=== PATIENT | male | born 1945 | race American Indian/Alaskan Native ===

== ENCOUNTER 2018-05-23 21:45 | Inpatient (IN) | payer MEDICARE ==
[2018-05-23] MEDS ORDERED: NACL 0.9% 1000 ML IV ONE (21:59)
--- NOTE | 2018-05-23 22:10 | Emergency Department Report ---
ED General Adult HPI - General Chief complaint: Altered Mental Status Stated complaint: ALTERED MENTAL STATUS/HYPERTENSION Time Seen by Provider: 05/23/18 21:57 Source: EMS Mode of arrival: Stretcher Limitations: Altered Mental Status - History of Present Illness Initial comments: Patient is 72 years old male, snf patient, history of dementia, retention, diabetes, CVA, chronic indwelling catheter. Patient brought to the emergency room via EMS for evaluation of degrees blood pressure and hypothermia. EMS stated that initial blood pressure was 64/42. Patient urinary bag is empty. Patient is not communicating but according to the EMS nursing staff said this is his baseline. Most of the history is from EMS and from outpatient medical record. Sepsis protocol initiated. Severity scale (0 -10): 0 - Related Data Home Medications Medication Instructions Recorded Confirmed Last Taken Acetaminophen [Non-Aspirin Pain 500 mg PO Q4H PRN 01/26/17 04/03/18 01/26/17 Relief] Previous Rx's Medication Instructions Recorded Last Taken Type carBAMazepine [TEGretol] 400 mg PO Q8HR tablet 09/24/14 01/25/17 Rx Carvedilol [Coreg] 6.25 mg PO BID tablet 01/29/[address] [Depakote Dr] 250 mg PO TID tablet 01/29/17 Unknown Rx Multivitamin Tab [Multiple Vitamin 1 each PO DAILY tablet 01/29/17 Unknown Rx TAB (Theragran)] Aspirin [Aspirin TAB] 325 mg PO QDAY #30 tablet 04/13/18 Unknown Rx AtorvaSTATin [Lipitor] 40 mg PO QHS #30 tablet 04/13/18 Unknown Rx Allergies Allergy/AdvReac Type Severity Reaction Status Date / Time No Known Allergies Allergy Verified 04/03/18 10:23 ED Review of Systems ROS: Stated complaint: ALTERED MENTAL STATUS/HYPERTENSION Other details as noted in HPI Comment: Unobtainable due to pts medical conditions ED Past Medical Hx - Past Medical History Hx Hypertension: Yes (04/11/2006) Hx Seizures: Yes Hx Dementia: Yes Additional medical history: HX of weakness in arms legs and back - Social History Smoking Status: Unknown if ever smoked Substance Use Type: Other - Medications Home Medications: Home Medications Medication Instructions Recorded Confirmed Last Taken Type carBAMazepine [TEGretol] 400 mg PO Q8HR tablet 09/24/14 04/03/18 01/25/17 Rx Acetaminophen [Non-Aspirin Pain 500 mg PO Q4H PRN 01/26/17 04/03/18 01/26/17 History Relief] Carvedilol [Coreg] 6.25 mg PO BID tablet 01/29/17 04/03/[address] [Depakote Dr] 250 mg PO TID tablet 01/29/17 04/03/18 Unknown Rx Multivitamin Tab [Multiple Vitamin 1 each PO DAILY tablet 01/29/17 04/03/18 Unknown Rx TAB (Theragran)] Aspirin [Aspirin TAB] 325 mg PO QDAY #30 tablet 04/13/18 Unknown Rx AtorvaSTATin [Lipitor] 40 mg PO QHS #30 tablet 04/13/18 Unknown Rx ED Physical Exam - General Limitations: Altered Mental Status General appearance: alert, in no apparent distress - Head Head exam: Present: atraumatic, normocephalic, normal inspection - Eye Eye exam: Present: normal appearance, PERRL - ENT ENT exam: Present: normal exam, mucous membranes dry - Neck Neck exam: Present: normal inspection, full ROM. Absent: tenderness, meningismus, lymphadenopathy, thyromegaly - Respiratory Respiratory exam: Present: normal lung sounds bilaterally. Absent: respiratory distress, wheezes, rales, rhonchi, chest wall tenderness, accessory muscle use, decreased breath sounds, prolonged expiratory - Cardiovascular Cardiovascular Exam: Present: regular rate, normal rhythm, normal heart sounds - GI/Abdominal GI/Abdominal exam: Present: soft, normal bowel sounds. Absent: distended, tenderness, guarding, rebound, rigid, organomegaly, mass, bruit, pulsatile mass, hernia - Extremities Exam Extremities exam: Present: normal inspection, full ROM, normal capillary refill - Neurological Exam Neurological exam: Present: alert, altered, CN II-XII intact - Skin Skin exam: Present: warm, intact ED Course Vital Signs 05/23/18 05/23/18 05/23/18 21:48 22:04 22:16 Temperature 97.4 F L Pulse Rate 84 81 79 Respiratory 16 17 20 Rate Blood Pressure 81/49 Blood Pressure 104/55 [Left] O2 Sat by Pulse 98 Oximetry 05/23/18 05/23/18 05/23/18 22:40 22:46 23:00 Temperature Pulse Rate 82 84 89 Respiratory 18 22 16 Rate Blood Pressure 81/49 81/49 111/64 Blood Pressure [Left] O2 Sat by Pulse 98 Oximetry - Reevaluation(s) Reevaluation #1: 05/23/18 23:57 Patient evaluated by me multiple times. Blood pressure improved significantly after fluid resuscitation. ED Medical Decision Making - Lab Data Result diagrams: 05/23/18 22:03 05/23/18 22:03 - Radiology Data Radiology results: report reviewed Referring Physician: JL ARROYO Patient Name: POPPY FRANCIS Date of : 1945 Sex: Male Report Date: 2018-05-23 Report Status: Finalized Findings [facility] [address] [place] [address] Cat Scan Report Signed Patient: POPPY FRANCIS MR#: [id number] : 1945 Acct:[id number] Age/Sex: 72 / M ADM Date: 05/23/18 Loc: ED Attending Dr: Ordering Physician: JL ARROYO Date of Service: 05/23/18 Procedure(s): CT head/brain wo con Accession Number(s): [id number] cc: JL ARROYO FINAL REPORT EXAM: CT HEAD/BRAIN WO CON HISTORY: AMS TECHNIQUE: 2.5 millimeter axial images from the skullbase to the vertex. Comparison: Head CT dated April 06, 2018 FINDINGS: White matter changes most likely represent chronic post ischemic demyelinat ion/small vessel disease and is not significantly changed in the interval. There is no evidence of an acute intracranial process, intracranial hemorrhage or mass effect. Ventricular size is concordant with the degree of atrophy. There is prominence of the extra-axial spaces in the posterior fossa similar in appearance to the previous study. There is atherosclerotic vascular calcification of the internal carotid arteries bilaterally and left vertebral artery at the skullbase. The visualized portions of the orbits, paranasal and mastoid sinuses are unremarkable. The bony structures are unremarkable. IMPRESSION: 1. A no evidence of an acute intracranial process, intracranial hemorrhage or mass effect. No significant change since previous study dated April 06, 2018. If there is a clinical suspicion of an acute intracranial process, MRI brain may be helpful. Transcribed By: ED Dictated By: VANESA ZHOU MD Electronically Authenticated By: VANESA ZHOU MD Signed Date/Time: 05/23/182323 DD/ 22 TD/TT: 05/23/182322 Referring Physician: JL ARROYO Patient Name: POPPY FRANCIS Date of : 1945 Sex: Male Report Date: 2018-05-23 Report Status: Finalized Findings [facility] [address] [place] [address] XRay Report Signed Patient: POPPY FRANCIS MR#: [id number] : 1945 Acct:[id number] Age/Sex: 72 / M ADM Date: 05/23/18 Loc: ED Attending Dr: Ordering Physician: JL ARROYO Date of Service: 05/23/18 Procedure(s): XR chest 1V ap Accession Number(s): [id number] cc: JL ARROYO Fluoro Time In Minutes: FINAL REPORT PROCEDURE: XR CHEST 1V AP TECHNIQUE: Chest radiograph anteroposterior view. CPT 53072 HISTORY: sepsis COMPARISON: No prior studies are available for comparison. FINDINGS: Heart: Normal. Mediastinum/Vessels: Normal. Lungs/Pleural space: Normal. Bony thorax: No acute osseous abnormality. Life support devices: None. IMPRESSION: No acute cardiopulmonary abnormality. Transcribed By: [facility] [place] Dictated By: SHANNAN GILLIS Electronically Authenticated By: SHANNAN GILLIS Signed Date/Time: 05/23/182326 DD/ 26 TD/TT: 05/23/182326 - Medical Decision Making Patient is 72 years old male, snf patient, history of dementia, retention, diabetes, CVA, chronic indwelling catheter. Patient brought to the emergency room via EMS for evaluation of degrees blood pressure and hypothermia. EMS stated that initial blood pressure was 64/42. Patient urinary bag is empty. Patient is not communicating but according to the EMS nursing staff said this is his baseline. Most of the history is from EMS and from outpatient medical record. Sepsis protocol initiated. Patient evaluated by me multiple times. Patient blood pressure significantly improved after the first liter of fluids. Patient white count is 16. Patient treated for sepsis, possible source is urine. CT brain is negative for acute finding. Chest x-ray is negative also. I discussed the patient is Dr. Dominguez, he agreed to admit the patient to medical service. Critical Care Time: Yes Critical care time in (mins) excluding proc time.: 30 Critical care attestation.: If time is entered above; I have spent that time in minutes in the direct care of this critically ill patient, excluding procedure time. ED Disposition Clinical Impression: Sepsis, Hypotension, Acute renal failure, Altered mental status Disposition: DC-[id number] OP ADMIT IP TO THIS HOSP Is pt being admited?: Yes Condition: Stable
[2018-05-23] MEDS ORDERED: ZOSYN/NS 3.375GM/50ML 3.375 GM/50 ML BAG IV ONE (22:21)
[2018-05-23 22:39] LABS: Basophils % (Auto) 0.1 % (0.0-1.8); Hematocrit 38.4 % (35.5-45.6); Hemoglobin 13.2 gm/dl (11.8-15.2); Lymphocytes # (Auto) 0.6 K/mm3 (1.2-5.4); Lymphocytes % (Auto) 3.8 % (13.4-35.0); Mean Corpuscular HGB Conc 34 % (32-34); Mean Corpuscular Volume 92 fl (84-94); Monocytes # (Auto) 1.3 K/mm3 (0.0-0.8); Monocytes % (Auto) 8.1 % (0.0-7.3); Platelet Count 181 K/mm3 (140-440); Red Blood Count 4.18 M/mm3 (3.65-5.03); Red Cell Distribution Width 14.8 % (13.2-15.2)
[2018-05-23 22:59] LABS: Albumin 3.1 g/dL (3.9-5); Calcium 8.1 mg/dL (8.4-10.2)
--- NOTE | 2018-05-23 23:24 | Cat Scan Report ---
FINAL REPORT EXAM: CT HEAD/BRAIN WO CON HISTORY: AMS TECHNIQUE: 2.5 millimeter axial images from the skullbase to the vertex. Comparison: Head CT dated April 06, 2018 FINDINGS: White matter changes most likely represent chronic post ischemic demyelination/small vessel disease a nd is not significantly changed in the interval. There is no evidence of an acute intracranial process, intracranial hemorrhage or mass effect. Ventricular size is concordant with the degree of atrophy. There is prominence of the extra-axial spaces in the posterior fossa similar in appearance to the pre vious study. There is atherosclerotic vascular calcification of the internal carotid arteries bilaterally and left vertebral artery at the skullbase. The visualized portions of the orbits, paranasal and mastoid sinuses are unremarkable. The bony structures are unremarkable. IMPRESSION: 1. A no evidence of an acute intracranial process, intracranial hemorrhage or mass effect. No significant change since previous study dated April 06, 2018. If there is a clinical suspicion of an acute intracranial process, MRI brain may be helpful.
--- NOTE | 2018-05-23 23:27 | XRay Report ---
FINAL REPORT PROCEDURE: XR CHEST 1V AP TECHNIQUE: Chest radiograph anteroposterior view. CPT 41598 HISTORY: sepsis COMPARISON: No prior studies are available for comparison. FINDINGS: Heart: Normal. Mediastinum/Vessels: Normal. Lungs/Pleural space: Normal. Bony thorax: No acute osseous abnormality. Life support devices: None. IMPRESSION: No acute cardiopulmonary abnormality.
[2018-05-24] MEDS ORDERED: NACL 0.9% 1000 ML 1,000 ML ONE ×2 (00:34→02:00)
[2018-05-24] MEDS ORDERED: NACL 0.9% 1000 ML 1,000 ML IV ONE (00:47)
[2018-05-24] MEDS ORDERED: ZOFRAN IV PRN (00:48)
[2018-05-24] MEDS: NACL 0.9% 1000 ML 1,000 ML IV SCH ×2 (01:58→17:32)
[2018-05-24] MEDS ORDERED: HEPARIN ONE (01:59)
[2018-05-24] MEDS: ZOSYN/NS 2.25 GM/50ML 2.25 GM/50 ML BAG IV SCH ×3 (05:27→18:13)
[2018-05-24] MEDS ORDERED: ZOSYN/NS 3.375GM/50ML 3.375 GM/50 ML BAG IV SCH (06:00)
--- NOTE | 2018-05-24 06:44 | History and Physical Report ---
CHIEF COMPLAINT: Change in mental status. Other complaint includes low blood pressure. HISTORY OF PRESENT ILLNESS: The patient is a 72-year-old male who is brought from alf because of change in mental status. Also, the patient was noted to have low blood pressure and low temperature at the alf with systolic blood pressure in the 60s and they sent him over. There was no history of nausea or vomiting. No history of chest pain or shortness of breath. The patient was sent over for evaluation. PAST MEDICAL HISTORY: Pertinent for hypertension, seizure disorder, dementia, weakness in the leg. PAST SURGICAL HISTORY: Unremarkable. FAMILY HISTORY: Noncontributory. SOCIAL HISTORY: The patient stays at a alf, does not smoke, does not drink alcohol and does not use illicit drug. MEDICATIONS: The patient is on Tegretol or carbamazepine 400 mg by mouth every 8 hours, Tylenol 500 mg by mouth every 4 hours, Coreg 6.25 mg by mouth twice daily, Depakote 250 mg by mouth 3 times daily, multivitamin 1 by mouth daily, aspirin 325 mg by mouth daily, Lipitor 40 mg by mouth at bedtime. ALLERGIES: There are no known drug allergies. REVIEW OF SYSTEMS: CONSTITUTIONAL: There is no fever, no chills, no diaphoresis. HEENT: There is no headache or sore throat. CARDIOVASCULAR: There is no chest pain or orthopnea. RESPIRATORY: There is no shortness of breath or cough. GASTROINTESTINAL SYSTEM: There is no nausea, no vomiting, no abdominal pain, diarrhea or constipation. NEUROLOGICAL SYSTEM: There is a change in mental status, but no dizziness or numbness. MUSCULOSKELETAL: There is no joint pain or swelling. DERMATOLOGICAL SYSTEM: There is no skin rash or itching. GENITOURINARY: There is no dysuria, hematuria or flank pain. Rest of system review is normal. PHYSICAL EXAMINATION: GENERAL: At the time of exam, the patient was found to go to be alert, disoriented x 3 and not in acute distress. VITAL SIGNS: Vital signs at the initial time of presentation showed temperature of 97.4 degrees Fahrenheit, pulse of 84, respiration 16, initial blood pressure of 104/65, but blood pressure went down to 81/49, and O2 sat of 98% on room air. HEENT: Show pupils to be equal, round, reactive to light and accommodation. Extraocular muscles are intact. NECK: Supple with no JVD or carotid bruit. CARDIOVASCULAR: Showed normal first and second heart sounds with no gallops or murmur. RESPIRATORY SYSTEM: Show good air entry on both sides of the lungs with no abnormal breath sounds. GASTROINTESTINAL SYSTEM: Show abdomen to be full, soft, nontender with no organomegaly or rigidity. NEUROLOGICAL: Shows the patient to be disoriented x 3 with no focal deficit. MUSCULOSKELETAL SYSTEM: Show no joint swelling or tenderness. DERMATOLOGICAL SYSTEM: Show no skin rash. GENITOURINARY SYSTEM: Show no costovertebral angle tenderness. PERTINENT LABORATORY AND IMAGING STUDIES: The patient had chest x-ray done that shows no acute cardiopulmonary lesion. Also, the patient has a CT of the head without contrast done and this shows no evidence of acute intracranial process. The patient's lab result shows CBC with elevated white count of 16,300, normal hemoglobin, normal hematocrit with CBC differential showing elevated segmented neutrophil of 88%. The patient's chemistry showed low sodium level of 131, low chloride level of 95.3, low CO2 of 18 with elevated BUN of 23 with elevated creatinine of 2.0. Rest of chemistry show elevated AST of 95 with normal ALT, low albumin of 3.1. DIAGNOSES: 1. Sepsis. 2. Acute renal failure. 2. Altered mental status. PLAN OF CARE: 1. While the patient will be admitted to telemetry. 2. The patient will be on IV Zosyn 3.375 grams q. 8 hours and IV Levaquin 750 mg daily. 3. The patient will be on p.r.n. medications like Tylenol 650 mg by mouth every 4 hours for fever and headache and IV Zofran 4 mg every 8 hours for nausea and vomiting. 4. The patient will have basic metabolic panel checked in the morning. 5. The patient will have Nephrology consultation with Dr. Connor in the morning for acute renal failure. 6. The patient will be on IV normal saline at 125 mL an hour. 7. The patient will be on his home medication as shown in the medication reconciliation section. 8. The patient's diet will be 2 g sodium diet. JOB# [id number] OCN/NTS
[2018-05-24 06:55] LABS: Calcium 7.5 mg/dL (8.4-10.2)
[2018-05-24] MEDS: THERAGRAN Tab PO SCH (09:47)
[2018-05-24] MEDS: ASPIRIN PO SCH (09:48)
[2018-05-24] MEDS: TYLENOL PO PRN (09:49)
[2018-05-24] MEDS ORDERED: THERAGRAN Tab PO SCH (10:00)
[2018-05-24] MEDS ORDERED: LEVAQUIN 750MG/150ML 750 MG/150 ML BAG IV SCH (10:00)
[2018-05-24] MEDS: COREG PO SCH ×2 (11:09→22:50)
--- NOTE | 2018-05-24 11:25 | Consultation ---
History of Present Illness - Reason for Consult Consult date: 05/24/18 acute renal failure - History of Present Illness The patient is a 72 YO male with history significant for DM, HTN, [place] resident, Dementia, CVA and Chronic indwelling catheter who was brought to the emergency room via EMS for evaluation of hypotension and hypothermia. Patient was not able to provide any history and no family member at the bedside. Per EMS report his initial blood pressure was 64/42. Labs were significant for creatinine 2, bicar 18 and Na 131. Nephrology was consulted for further management. Past History Past Medical History: diabetes, hyperlipidemia, other (dementia) Medications and Allergies Allergies Allergy/AdvReac Type Severity Reaction Status Date / Time No Known Allergies Allergy Verified 04/03/18 10:23 Home Medications Medication Instructions Recorded Confirmed Last Taken Type carBAMazepine [TEGretol] 400 mg PO Q8HR tablet 09/24/14 05/24/18 01/25/17 Rx Acetaminophen [Non-Aspirin Pain 500 mg PO Q4H PRN 01/26/17 05/24/18 01/26/17 History Relief] Carvedilol [Coreg] 6.25 mg PO BID tablet 01/29/17 05/24/[address] [Sergei Santizo] 250 mg PO TID tablet 01/29/17 05/24/18 Unknown Rx Multivitamin Tab [Multiple Vitamin 1 each PO DAILY tablet 01/29/17 05/24/18 Unknown Rx TAB (Theragran)] Aspirin [Aspirin TAB] 325 mg PO QDAY #30 tablet 04/13/18 05/24/18 Unknown Rx AtorvaSTATin [Lipitor] 40 mg PO QHS #30 tablet 04/13/18 05/24/18 Unknown Rx Active Meds: Active Medications Acetaminophen (Tylenol) 650 mg PO Q4H PRN PRN Reason: Fever >101 Last Admin: 05/24/18 09:49 Dose: 650 mg Documented by: Aspirin (Aspirin) 325 mg PO QDAY GREGORIO Last Admin: 05/24/18 09:48 Dose: 325 mg Documented by: Atorvastatin Calcium (Lipitor) 40 mg PO QHS GREGORIO Carbamazepine (Tegretol) 400 mg PO Q8HR GREGORIO Last Admin: 05/24/18 05:31 Dose: 400 mg Documented by: Carvedilol (Coreg) 6.25 mg PO BID GREGORIO Divalproex Sodium (Sergei Santizo) 250 mg PO TID [facility] Last Admin: 05/24/18 09:45 Dose: 250 mg Documented by: Heparin Sodium (Porcine) (Heparin) 5,000 unit SUB-Q Q12HR [facility] Sodium Chloride (Nacl 0.9% 1000 Ml) 1,000 mls @ 125 mls/hr IV DIRECT [facility] Last Admin: 05/24/18 01:58 Dose: 125 mls/hr Documented by: Piperacillin Sod/Tazobactam Sod (Zosyn/Ns 2.25 Gm/50ml) 2.25 gm in 50 mls @ 100 mls/hr IV Q6HR [facility] Last Admin: 05/24/18 05:27 Dose: 100 mls/hr Documented by: Levofloxacin/Dextrose (Levaquin 750mg/150ml) 750 mg in 150 mls @ 100 mls/hr IV Q48HR [facility]; Protocol Multivitamins (Theragran Tab) 1 each PO 0800 [facility] Last Admin: 05/24/18 09:47 Dose: 1 each Documented by: Ondansetron HCl (Zofran) 4 mg IV Q8H PRN PRN Reason: Nausea And Vomiting Review of Systems ROS unobtainable: due to mental status Exam - Vital Signs Vital signs: Vital Signs Temp Pulse Resp BP Pulse Ox 97.4 F L 84 16 104/55 98 05/23/18 21:48 05/23/18 21:48 05/23/18 21:48 05/23/18 21:48 05/23/18 21:48 - General Appearance General appearance: well-developed, appears stated age, other (not in distress) EENT: ATNC, PERRL, mucous membranes dry Neck: Present: trachea midline Respiratory: Clear to Ascultation Heart: regular, S1S2, no murmurs Gastrointestinal: Present: normoactive bowel sounds, other (Summers catheter n oted). Absent: tenderness, distended Integumentary: no rash, warm and dry Neurologic: other (not following any command, able to tell his name) Musculoskeletal: Present: other (no edema) Results - Lab Results 05/24/18 10:52 05/24/18 06:14 Most recent lab results Calcium 7.5 mg/dL (8.4-10.2) L 05/24/18 06:14 - Image Kidney/bladder ultrasound: other Assessment and Plan 1. Acute kidney injury: Vasomotor ZAY in the setting of hypotension. Continue IV fluids. CT abdomen was negative for hydronephrosis. Urine studies are pending. Monitor renal function. Avoid nephrotoxic agents. Meds dosage based on GFR. 2. FEN: Volume depletion, continue IV fluids. Monitor lytes. 3. Sepsis / hypotension: Followed by ID. 4. Hematuria. 5. Acute encephalopathy.
[2018-05-24 11:34] LABS: Hematocrit 31.7 % (35.5-45.6); Hemoglobin 10.7 gm/dl (11.8-15.2); Mean Corpuscular HGB Conc 34 % (32-34); Mean Corpuscular Volume 92 fl (84-94); Platelet Count 152 K/mm3 (140-440); Red Blood Count 3.46 M/mm3 (3.65-5.03); Red Cell Distribution Width 14.6 % (13.2-15.2)
--- NOTE | 2018-05-24 11:43 | Event Note ---
Date: 05/24/18 Patient is 72 yo sent in from SNF for altered mental status ,hypothermia, low BP. He was evaluated in ED, diagnosed with sepsis, ZAY. I have seen and examined him. Nurse reports gross hematuria which I witnessed myself. Consult ID Physician, consult Urology, get CT Abd
[2018-05-24] MEDS: HEPARIN SUB-Q SCH ×2 (12:09→22:55)
--- NOTE | 2018-05-24 13:49 | Cat Scan Report ---
FINAL REPORT EXAM: CT ABDOMEN PELVIS WO CON HISTORY: Gross hematuria COMPARISON: CT of the abdomen and pelvis performed on 01/25/2017 TECHNIQUE: Multiple contiguous axial images were obtained from the lung bases to the pubic symphysis without administration of IV contrast. Reformatted sagittal and coronal images were available for re view. FINDINGS: Lung bases: Trace bilateral pleural effusions. Associated atelectasis at the bilateral lung bases. Visualized heart and mediastinum: Normal heart size. Scattered coronary artery calcifications. Liver: Normal noncontrast appearance. Spleen: Normal noncontrast appearance. Pancreas: Normal noncontrast appearance. Gallbladder and Biliary Tree: No calcified gallstones. No biliary ductal dilatation. Adrenal glands: Normal. Kidneys: Normal noncontrast appearance. No hydronephrosis. No renal or ureteral calculi. Bladder: Normal. Pelvic organs: Summers catheter tip is within the prostatic urethra. The balloon is just distal to the prostatic urethra. Mildly enlarged prostate gland, similar to the previous study with mass effect at the bladder base. Bowel: No focal wall thickening. No evidence of obstruction. Large amount of stool within the colon. More solid appearing stool distends the rectum. Peritoneum: No significant mesenteric adenopathy. No free air or free fluid. Vasculature: Abdominal aorta is normal in caliber without evidence of aneurysm. Scattered atheroscler otic calcifications. Normal noncontrast appearance of the portal venous system and the inferior vena cava. Bones and soft tissues: Chronic appearing comminuted fracture of the right femoral neck and intertroc hanteric region. Unchanged chronic appearing compression deformities of T11, L1, L2, L3, and L4. Soft tissues are normal. IMPRESSION: Trace bilateral pleural effusions with associated atelectasis at the bilateral lung bases. The kidneys demonstrated normal noncontrast appearance. No hydronephrosis. Mildly enlarged prostate gland with mass effect at the bladder base, similar in appearance to the pre vious study. The Summers catheter is with tip in the prostatic urethra with the balloon just distal to the prostatic urethra. Chronic appearing fracture of the right femoral neck and intertrochanteric region. Chronic appearing compression deformities of T11, L1, L2, L3, and L4.
--- NOTE | 2018-05-24 14:39 | Consultation ---
History of Present Illness - Reason for Consult Consult date: 05/24/18 Sepsis, UTI Requesting physician: KERRY MELENDEZ - History of Present Illness The patient is a 72-year-old male with dementia, urinary retention, indwelling Summers catheter, diabetes, CVA who is a jail resident was brought to the emergency room yesterday due to hypotension and associated hypothermia. Apparently, he initially had some hematuria and later no urine output. In the ER, the patient was noted to be septic with leukocytosis, lactic acidosis and hypotension. He was given a dose of Zosyn and vancomycin and admitted to the hospital. Infectious diseases has been consulted to help manage sepsis. The patient currently is lying in bed, more awake, talking but appears confused. Does not seem to be any distress. Has indwelling Summers catheter with no urine output. Review of Systems: Not be obtained due to dementia Medications and Allergies Allergies Allergy/AdvReac Type Severity Reaction Status Date / Time No Known Allergies Allergy Verified 04/03/18 10:23 Home Medications Medication Instructions Recorded Confirmed Last Taken Type carBAMazepine [TEGretol] 400 mg PO Q8HR tablet 09/24/14 05/24/18 01/25/17 Rx Acetaminophen [Non-Aspirin Pain 500 mg PO Q4H PRN 01/26/17 05/24/18 01/26/17 History Relief] Carvedilol [Coreg] 6.25 mg PO BID tablet 01/29/17 05/24/18 Unknown Rx Divalproex [Sergei Santizo] 250 mg PO TID tablet 01/29/17 05/24/18 Unknown Rx Multivitamin Tab [Multiple Vitamin 1 each PO DAILY tablet 01/29/17 05/24/18 Unknown Rx TAB (Theragran)] Aspirin [Aspirin TAB] 325 mg PO QDAY #30 tablet 04/13/18 05/24/18 Unknown Rx AtorvaSTATin [Lipitor] 40 mg PO QHS #30 tablet 04/13/18 05/24/18 Unknown Rx Active Meds: Active Medications Acetaminophen (Tylenol) 650 mg PO Q4H PRN PRN Reason: Fever >101 Last Admin: 05/24/18 09:49 Dose: 650 mg Documented by: Aspirin (Aspirin) 325 mg PO QDAY GREGORIO Last Admin: 05/24/18 09:48 Dose: 325 mg Documented by: Atorvastatin Calcium (Lipitor) 40 mg PO QHS GREGORIO Carbamazepine (Tegretol) 400 mg PO Q8HR [facility] Last Admin: 05/24/18 14:22 Dose: 400 mg Documented by: Carvedilol (Coreg) 6.25 mg PO BID [facility] Last Admin: 05/24/18 11:09 Dose: Not Given Documented by: Divalproex Sodium (Depakote Dr) 250 mg PO TID [facility] Last Admin: 05/24/18 14:22 Dose: 250 mg Documented by: Heparin Sodium (Porcine) (Heparin) 5,000 unit SUB-Q Q12HR [facility] Last Admin: 05/24/18 12:09 Dose: 5,000 unit Documented by: Sodium Chloride (Nacl 0.9% 1000 Ml) 1,000 mls @ 125 mls/hr IV DIRECT [facility] Last Admin: 05/24/18 01:58 Dose: 125 mls/hr Documented by: Piperacillin Sod/Tazobactam Sod (Zosyn/Ns 2.25 Gm/50ml) 2.25 gm in 50 mls @ 100 mls/hr IV Q6HR [facility] Last Admin: 05/24/18 05:27 Dose: 100 mls/hr Documented by: Cefepime HCl (Maxipime/Ns 1 Gm/100 Ml) 1 gm in 100 mls @ 200 mls/hr IV Q12HR [facility]; Protocol Multivitamins (Theragran Tab) 1 each PO 0800 [facility] Last Admin: 05/24/18 09:47 Dose: 1 each Documented by: Ondansetron HCl (Zofran) 4 mg IV Q8H PRN PRN Reason: Nausea And Vomiting Physical Examination - Physical Exam Narrative exam: Physical Exam: Constitutional: Alert. No acute distress Head, Ears, Nose: Normocephalic, atraumatic. External ears, nose normal Eyes: Conjunctivae/corneas clear. No icterus. No ptosis. Neck: Supple, no meningeal signs Oral: several missing teeth, no thrush Cardiovascular: S1, S2 normal. Respiratory: Good air entry, clear to auscultation bilaterally GI: bowel sounds + . Has some voluntary guarding of the lower abdomen. Summers catheter in place. Musculoskeletal: No pedal edema, no cyanosis. Skin: No rash or abscess Hem/Lymphatic: No palpable cervical or supraclavicular nodes. No lymphangitis Psych: no agitation Neurological: Awake, alert, confused. - Constitutional Vitals: Vital Signs Temp Pulse Resp BP Pulse Ox 97.3 F L 92 H 22 97/55 100 05/24/18 03:13 05/24/18 11:09 05/24/18 03:13 05/24/18 11:09 05/24/18 03:13 Temperature -Last 24 Hours Temperature 97.3 F Temperature 97.4 F Results - Labs CBC & Chem 7: 05/24/18 10:52 05/24/18 06:14 Labs: Abnormal lab results 05/23/18 05/23/18 05/24/18 Range/Units 22:03 22:03 01:01 WBC 16.3 H (4.5-11.0) K/mm3 RBC (3.65-5.03) M/mm3 Hgb (11.8-15.2) gm/dl Hct (35.5-45.6) % Lymph % (Auto) 3.8 L (13.4-35.0) % [place] % (Auto) 8.1 H (0.0-7.3) % Lymph # 0.6 L (1.2-5.4) K/mm3 [place] # 1.3 H (0.0-0.8) K/mm3 Seg Neutrophils % 88.0 H (40.0-70.0) % Seg Neutrophils # 14.4 H (1.8-7.7) K/mm3 Sodium 131 L (137-145) mmol/L Chloride 95.3 L (98-107) mmol/L Carbon Dioxide 18 L (22-30) mmol/L BUN 23 H (9-20) mg/dL Creatinine 2.0 H (0.8-1.5) mg/dL Lactic Acid 2.70 H* (0.7-2.0) mmol/L Calcium 8.1 L (8.4-10.2) mg/dL AST 95 H (5-40) units/L Albumin 3.1 L (3.9-5) g/dL 05/24/18 05/24/18 05/24/18 Range/Units 02:53 06:14 10:52 WBC 12.8 H (4.5-11.0) K/mm3 RBC 3.46 L (3.65-5.03) M/mm3 Hgb 10.7 L (11.8-15.2) gm/dl Hct 31.7 L D (35.5-45.6) % Lymph % (Auto) (13.4-35.0) % [place] % (Auto) (0.0-7.3) % Lymph # (1.2-5.4) K/mm3 [place] # (0.0-0.8) K/mm3 Seg Neutrophils % (40.0-70.0) % Seg Neutrophils # (1.8-7.7) K/mm3 Sodium 135 L (137-145) mmol/L Chloride (98-107) mmol/L Carbon Dioxide 19 L (22-30) mmol/L BUN 26 H (9-20) mg/dL Creatinine 1.9 H (0.8-1.5) mg/dL Lactic Acid 2.30 H* (0.7-2.0) mmol/L Calcium 7.5 L (8.4-10.2) mg/dL AST (5-40) units/L Albumin (3.9-5) g/dL - Imaging and Cardiology Chest x-ray: report reviewed, image reviewed (Chest x-ray shows no evidence of pneumonia.) CT scan - abdomen: report reviewed, image reviewed (CT abdomen and pelvis without contrast showed Summers catheter balloon in the prostatic urethra.) Assessment and Plan Cultures: 05/23/2018 blood cultures: In progress A/P: 72-year-old male with dementia, urinary retention, indwelling Summers catheter, d iabetes, CVA, admitted with: 1) Sepsis: leucocytosis, hypotension, lactic acidosis, likely secondary to urinary tract infection and hematuria with what appears to be a displaced Summers catheter. Discontinue levofloxacin and started empirically on IV cefepime to cover for complicated UTI. Urology has been consulted. 2) Acute encephalopathy: On background of severe dementia now appears to be at baseline. 3) ZAY: renally dose abx. Nephrology consulted. Recs: Discontinue levofloxacin Started IV cefepime Awaiting urology evaluation Send UA and urine culture when able to, currently anuric d/w Dr. Melendez. MD Isi Mistry [facility] C: [phone] O: [phone] F: [phone]
[2018-05-24] MEDS: MAXIPIME/NS 1 GM/100 ML 1 GM/100 ML BAG IV SCH ×2 (17:52→22:50)
[2018-05-24] MEDS: DepaKENE Liq FEEDTUBE SCH (22:50)
[2018-05-25] MEDS: ZOSYN/NS 2.25 GM/50ML 2.25 GM/50 ML BAG IV SCH ×2 (00:14→06:47)
[2018-05-25 02:09] LABS: Creatinine,Urine 102.8 mg/dL (0.1-20.0)
[2018-05-25 02:12] LABS: Bilirubin,Urine NEG (Negative); Blood,Urine LG (Negative); Color,Urine Amber (Yellow); Urobilinogen,Urine < 2.0 mg/dL (<2.0)
[2018-05-25 02:14] LABS: WBC,Urine > 182.0 /HPF (0.0-6.0)
[2018-05-25 05:45] LABS: Basophils % (Auto) 0.3 % (0.0-1.8); Hematocrit 33.6 % (35.5-45.6); Hemoglobin 11.3 gm/dl (11.8-15.2); Lymphocytes # (Auto) 0.8 K/mm3 (1.2-5.4); Lymphocytes % (Auto) 6.4 % (13.4-35.0); Mean Corpuscular HGB Conc 34 % (32-34); Mean Corpuscular Volume 92 fl (84-94); Monocytes # (Auto) 1.4 K/mm3 (0.0-0.8); Monocytes % (Auto) 11.6 % (0.0-7.3); Platelet Count 138 K/mm3 (140-440); Red Blood Count 3.66 M/mm3 (3.65-5.03); Red Cell Distribution Width 14.7 % (13.2-15.2)
[2018-05-25 06:03] LABS: Calcium 7.4 mg/dL (8.4-10.2)
[2018-05-25] MEDS: DepaKENE Liq FEEDTUBE SCH ×3 (08:00→22:47)
[2018-05-25] MEDS: HEPARIN SUB-Q SCH ×2 (09:39→22:47)
[2018-05-25] MEDS: MAXIPIME/NS 1 GM/100 ML 1 GM/100 ML BAG IV SCH ×2 (09:44→22:50)
[2018-05-25] MEDS ORDERED: KLOR-CON PO ONE (10:00)
--- NOTE | 2018-05-25 10:19 | Progress Note ---
Assessment and Plan Cultures: 05/23/2018 blood cultures: Staph Aureus Bacteremia A/P: 72-year-old male with dementia, urinary retention, indwelling Summers catheter, diabetes, CVA, admitted with: 1) Sepsis: Improved, leukocytosis continuing likely secondary to urinary tract infection and hematuria with what appears to be a displaced Summers catheter. Discontinue levofloxacin and started empirically on IV cefepime to cover for complicated UTI. Urology has been consulted. 2) Staph Aureaus Bacteremia: Start IV vancomycin. Repeat blood cultures ordered. Follow-up ID and sensitivity. TTE shows no valvular vegetation 2) Acute encephalopathy: On background of severe dementia now appears to be at baseline. 3) ZAY: renally dose abx. Nephrology consulted. Recs: Start Vancomycin with PK based dosing Continue IV cefepime Awaiting urology evaluation f/u UA and urine culture repeat blood cultures d/w Dr. Melendez. Essie Carrasquillo NP [facility] M: [phone] O:[phone] Subjective Date of service: 05/25/18 Principal diagnosis: t Interval history: Patient seen and examined. Non verbal at baseline, somnolent. Sister at bedside, Nurses notes, labs and imaging reviewed, questions answered. Objective - Exam Narrative Exam: Constitutional: Alert. mild distress observed Head, Ears, Nose: Normocephalic, atraumatic. External ears, nose normal Eyes: Conjunctivae/corneas clear. No icterus. No ptosis. Neck: Supple, no meningeal signs Oral: several missing teeth, no thrush Cardiovascular: S1, S2 normal. Respiratory: Good air entry, clear to auscultation bilaterally GI: bowel sounds + Summers catheter in place. Musculoskeletal: No pedal edema, no cyanosis. Skin: No rash or abscess Hem/Lymphatic: No palpable cervical or supraclavicular nodes. No lymphangitis Psych: no agitation Neurological: Awake, alert, confused. - Constitutional Vitals: Vital Signs Temp Pulse Resp BP Pulse Ox 97.0 F L 97 H 20 98/57 98 05/24/18 23:33 05/25/18 01:00 05/24/18 23:33 05/25/18 07:52 05/24/18 23:33 Temperature -Last 24 Hours Temperature 97.0 F - Labs CBC & Chem 7: 05/25/18 05:17 05/25/18 05:17 Labs: Abnormal lab results 05/24/18 05/24/18 05/24/18 Range/Units 00:15 00:15 10:52 WBC 12.8 H (4.5-11.0) K/mm3 RBC 3.46 L (3.65-5.03) M/mm3 Hgb 10.7 L (11.8-15.2) gm/dl Hct 31.7 L D (35.5-45.6) % Plt Count (140-440) K/mm3 Lymph % (Auto) (13.4-35.0) % [place] % (Auto) (0.0-7.3) % Lymph # (1.2-5.4) K/mm3 [place] # (0.0-0.8) K/mm3 Seg Neutrophils % (40.0-70.0) % Seg Neutrophils # (1.8-7.7) K/mm3 Sodium (137-145) mmol/L Potassium (3.6-5.0) mmol/L Chloride (98-107) mmol/L Carbon Dioxide (22-30) mmol/L BUN (9-20) mg/dL Creatinine (0.8-1.5) mg/dL Glucose (75-100) mg/dL POC Glucose (70-105) Calcium (8.4-10.2) mg/dL Total Creatine Kinase (55-170) units/L Urine WBC (Auto) > 182.0 H (0.0-6.0) /HPF Urine Creatinine 102.8 H (0.1-20.0) mg/dL 05/24/18 05/25/18 05/25/18 Range/Units 17:40 05:17 05:17 WBC 12.2 H (4.5-11.0) K/mm3 RBC (3.65-5.03) M/mm3 Hgb 11.3 L (11.8-15.2) gm/dl Hct 33.6 L (35.5-45.6) % Plt Count 138 L (140-440) K/mm3 Lymph % (Auto) 6.4 L (13.4-35.0) % [place] % (Auto) 11.6 H (0.0-7.3) % Lymph # 0.8 L (1.2-5.4) K/mm3 [place] # 1.4 H (0.0-0.8) K/mm3 Seg Neutrophils % 81.7 H (40.0-70.0) % Seg Neutrophils # 9.9 H (1.8-7.7) K/mm3 Sodium 136 L (137-145) mmol/L Potassium 3.4 L D (3.6-5.0) mmol/L Chloride 107.1 H (98-107) mmol/L Carbon Dioxide 18 L (22-30) mmol/L BUN 36 H (9-20) mg/dL Creatinine 1.8 H (0.8-1.5) mg/dL Glucose 101 H (75-100) mg/dL POC Glucose 108 H (70-105) Calcium 7.4 L (8.4-10.2) mg/dL Total Creatine Kinase 5516 H (55-170) units/L Urine WBC (Auto) (0.0-6.0) /HPF Urine Creatinine (0.1-20.0) mg/dL
--- NOTE | 2018-05-25 10:45 | Progress Note ---
Assessment and Plan 1. Acute kidney injury: Vasomotor ZAY in the setting of hypotension. Continue IV fluids. CT abdomen was negative for hydronephrosis. Monitor renal function. Avoid nephrotoxic agents. Meds dosage based on GFR. 2. FEN: Volume depletion, continue IV fluids. Hypokalemia, replete K. Metabolic acidosis. Monitor lytes. 3. Sepsis / hypotension: Staph aureus bacteremia. Followed by ID. 4. Hematuria: Resolved and evaluated by Urologist. 5. Acute encephalopathy. Subjective Date of service: 05/25/18 Principal diagnosis: t Interval history: Patient was seen and examined at the bedside. Objective - Vital Signs Vital signs: Vital Signs - 12hr 05/24/18 05/24/18 05/25/18 22:50 23:33 01:00 Temperature 97.0 F L Pulse Rate 97 H 96 H 97 H Respiratory 20 Rate Blood Pressure 167/88 116/66 O2 Sat by Pulse 98 Oximetry 05/25/18 07:52 Temperature Pulse Rate Respiratory Rate Blood Pressure 98/57 O2 Sat by Pulse Oximetry - General Appearance General appearance: well-developed, appears stated age, other (not in distress) EENT: ATNC Neck: supple Respiratory: Present: Clear to Ascultation Cardiology: regular, S1S2, no murmurs Gastrointestinal: normoactive bowel sounds, no tenderness, no distended, other (Summers catheter) Integumentary: no rash Neurologic: other (not following any command, non-verbal) Musculoskeletal: other (no edema) - Lab 05/25/18 05:17 05/25/18 05:17 Most recent lab results Calcium 7.4 mg/dL (8.4-10.2) L 05/25/18 05:17 Urine Creatinine 102.8 mg/dL (0.1-20.0) H 05/24/18 00:15 Urine Sodium 37 mmol/L 05/24/18 00:15 Medications & Allergies - Medications Allergies/Adverse Reactions: Allergies No Known Allergies Allergy (Verified 04/03/18 10:23) Home Medications: Home Medications Medication Instructions Recorded Confirmed Last Taken Type carBAMazepine [TEGretol] 400 mg PO Q8HR tablet 09/24/14 05/24/18 01/25/17 Rx Acetaminophen [Non-Aspirin Pain 500 mg PO Q4H PRN 01/26/17 05/24/18 01/26/17 History Relief] Carvedilol [Coreg] 6.25 mg PO BID tablet 01/29/17 05/24/18 Unknown Rx Divalproex [Sergei Santizo] 250 mg PO TID tablet 01/29/17 05/24/18 Unknown Rx Multivitamin Tab [Multiple Vitamin 1 each PO DAILY tablet 01/29/17 05/24/18 Unknown Rx TAB (Theragran)] Aspirin [Aspirin TAB] 325 mg PO QDAY #30 tablet 04/13/18 05/24/18 Unknown Rx AtorvaSTATin [Lipitor] 40 mg PO QHS #30 tablet 04/13/18 05/24/18 Unknown Rx Active Medications: Generic Name Dose Route Start Last Admin Trade Name Freq PRN Reason Stop Dose Admin Acetaminophen 650 mg 05/24/18 00:44 05/24/18 09:49 Tylenol PO 650 mg Q4H PRN Administration Fever >101 Aspirin 325 mg 05/24/18 10:00 05/24/18 09:48 Aspirin PO 325 mg QDAY GREGORIO Administration Atorvastatin Calcium 40 mg 05/24/18 22:00 05/24/18 22:50 Lipitor PO 40 mg QHS GREGORIO Administration Carbamazepine 400 mg 05/24/18 22:00 05/25/18 06:47 Tegretol PO 400 mg Q8HR GREGORIO Administration Carvedilol 6.25 mg 05/24/18 10:00 05/24/18 22:50 Coreg PO 6.25 mg BID GREGORIO Administration Heparin Sodium (Porcine) 5,000 unit 05/24/18 12:45 05/25/18 09:39 Heparin SUB-Q 5,000 unit Q12HR GREGORIO Administration Sodium Chloride 1,000 mls @ 125 mls/hr 05/24/18 01:00 05/24/18 17:32 Nacl 0.9% 1000 Ml IV 125 mls/hr DIRECT GREGORIO Administration Cefepime HCl 1 gm in 100 mls @ 200 mls/hr 05/24/18 15:00 05/25/18 09:44 Maxipime/Ns 1 Gm/100 Ml IV 200 mls/hr Q12HR GREGORIO Administration Protocol Multivitamins 1 each 05/24/18 08:00 05/24/18 09:47 Theragran Tab PO 1 each 0800 GREGORIO Administration Ondansetron HCl 4 mg 05/24/18 00:48 Zofran IV Q8H PRN Nausea And Vomiting Valproic Acid 250 mg 05/24/18 22:00 05/24/18 22:50 Depakene Liq FEEDTUBE 250 mg TID GREGORIO Administration
[2018-05-25] MEDS ORDERED: VANCOMYCIN PHARMACY TO DOSE IV SCH (11:00)
[2018-05-25] MEDS ORDERED: VANCOMYCIN 1,250 MG in NACL 0.9% 250ML 250 ML IV ONE (12:00)
--- NOTE | 2018-05-25 12:36 | Progress Note ---
Assessment and Plan [place] clear ct noted sig co morbidiities f/u as out pt keep xiomara Subjective Date of service: 05/25/18 Principal diagnosis: retention heme Objective - Constitutional Vitals: Vital Signs - 12hr 05/25/18 05/25/18 01:00 07:52 Pulse Rate 97 H Blood Pressure 98/57 General appearance: Present: mild distress - Neck Neck: supple - Respiratory Respiratory effort: normal - Gastrointestinal General gastrointestinal: Present: soft, non-tender - Neurologic Neurologic: focal deficits - Psychiatric Psychiatric: agitated, other - Labs CBC & Chem 7: 05/25/18 05:17 05/25/18 05:17 Labs: Abnormal lab results 05/24/18 05/24/18 05/24/18 Range/Units 00:15 00:15 17:40 WBC (4.5-11.0) K/mm3 Hgb (11.8-15.2) gm/dl Hct (35.5-45.6) % Plt Count (140-440) K/mm3 Lymph % (Auto) (13.4-35.0) % [place] % (Auto) (0.0-7.3) % Lymph # (1.2-5.4) K/mm3 [place] # (0.0-0.8) K/mm3 Seg Neutrophils % (40.0-70.0) % Seg Neutrophils # (1.8-7.7) K/mm3 Sodium (137-145) mmol/L Potassium (3.6-5.0) mmol/L Chloride (98-107) mmol/L Carbon Dioxide (22-30) mmol/L BUN (9-20) mg/dL Creatinine (0.8-1.5) mg/dL Glucose (75-100) mg/dL POC Glucose 108 H (70-105) Calcium (8.4-10.2) mg/dL Total Creatine Kinase (55-170) units/L Urine WBC (Auto) > 182.0 H (0.0-6.0) /HPF Urine Creatinine 102.8 H (0.1-20.0) mg/dL 05/25/18 05/25/18 Range/Units 05:17 05:17 WBC 12.2 H (4.5-11.0) K/mm3 Hgb 11.3 L (11.8-15.2) gm/dl Hct 33.6 L (35.5-45.6) % Plt Count 138 L (140-440) K/mm3 Lymph % (Auto) 6.4 L (13.4-35.0) % [place] % (Auto) 11.6 H (0.0-7.3) % Lymph # 0.8 L (1.2-5.4) K/mm3 [place] # 1.4 H (0.0-0.8) K/mm3 Seg Neutrophils % 81.7 H (40.0-70.0) % Seg Neutrophils # 9.9 H (1.8-7.7) K/mm3 Sodium 136 L (137-145) mmol/L Potassium 3.4 L D (3.6-5.0) mmol/L Chloride 107.1 H (98-107) mmol/L Carbon Dioxide 18 L (22-30) mmol/L BUN 36 H (9-20) mg/dL Creatinine 1.8 H (0.8-1.5) mg/dL Glucose 101 H (75-100) mg/dL POC Glucose (70-105) Calcium 7.4 L (8.4-10.2) mg/dL Total Creatine Kinase 5516 H (55-170) units/L Urine WBC (Auto) (0.0-6.0) /HPF Urine Creatinine (0.1-20.0) mg/dL Medications & Allergies - Medications Allergies/Adverse Reactions: Allergies No Known Allergies Allergy (Verified 04/03/18 10:23) Home Medications: Home Medications Medication Instructions Recorded Confirmed Last Taken Type carBAMazepine [TEGretol] 400 mg PO Q8HR tablet 09/24/14 05/24/18 01/25/17 Rx Acetaminophen [Non-Aspirin Pain 500 mg PO Q4H PRN 01/26/17 05/24/18 01/26/17 History Relief] Carvedilol [Coreg] 6.25 mg PO BID tablet 01/29/17 05/24/18 Unknown Rx Divalproex [Sergei Snatizo] 250 mg PO TID tablet 01/29/17 05/24/18 Unknown Rx Multivitamin Tab [Multiple Vitamin 1 each PO DAILY tablet 01/29/17 05/24/18 Unknown Rx TAB (Theragran)] Aspirin [Aspirin TAB] 325 mg PO QDAY #30 tablet 04/13/18 05/24/18 Unknown Rx AtorvaSTATin [Lipitor] 40 mg PO QHS #30 tablet 04/13/18 05/24/18 Unknown Rx Active Medications: Generic Name Dose Route Start Last Admin Trade Name Freq PRN Reason Stop Dose Admin Acetaminophen 650 mg 05/24/18 00:44 05/24/18 09:49 Tylenol PO 650 mg Q4H PRN Administration Fever >101 Aspirin 325 mg 05/24/18 10:00 05/24/18 09:48 Aspirin PO 325 mg QDAY GREGORIO Administration Atorvastatin Calcium 40 mg 05/24/18 22:00 05/24/18 22:50 Lipitor PO 40 mg QHS GREGORIO Administration Carbamazepine 400 mg 05/24/18 22:00 05/25/18 06:47 Tegretol PO 400 mg Q8HR GREGORIO Administration Carvedilol 6.25 mg 05/24/18 10:00 05/24/18 22:50 Coreg PO 6.25 mg BID GREGORIO Administration Heparin Sodium (Porcine) 5,000 unit 05/24/18 12:45 05/25/18 09:39 Heparin SUB-Q 5,000 unit Q12HR GREGORIO Administration Sodium Chloride 1,000 mls @ 125 mls/hr 05/24/18 01:00 05/24/18 17:32 Nacl 0.9% 1000 Ml IV 125 mls/hr DIRECT GREGORIO Administration Cefepime HCl 1 gm in 100 mls @ 200 mls/hr 05/24/18 15:00 05/25/18 09:44 Maxipime/Ns 1 Gm/100 Ml IV 200 mls/hr Q12HR GREGORIO Administration Protocol Vancomycin HCl 1,250 mg/ 275 mls @ 166.667 mls/hr 05/25/18 12:00 Sodium Chloride IV 05/25/18 13:38 ONCE ONE Vancomycin HCl 1 gm in 250 mls @ 166.667 mls/hr 05/26/18 10:00 Vancomycin/Ns 1 Gm/250 Ml IV QDAY [facility] Multivitamins 1 each 05/24/18 08:00 05/24/18 09:47 Theragran Tab PO 1 each 0800 GREGORIO Administration Ondansetron HCl 4 mg 05/24/18 00:48 Zofran IV Q8H PRN Nausea And Vomiting Valproic Acid 250 mg 05/24/18 22:00 02/13/19 22:50 Depakene Liq FEEDTUBE 250 mg TID GREGORIO Administration
--- NOTE | 2018-05-25 13:09 | Progress Note ---
Assessment and Plan Assessment and plan: Sepsis ID Physician following Bacteremia due to staph aureus. Start Vancomycin UTI ZAY. Monitr creatinine Toxic metabolic encephalopathy. neurochecks Dementia Gross hematuria. patient evaluated by Dr. Paz CT Abd : no hydronephrosis Urinary retention keep solano in Patient evaluated by Dr. Stevens Full code Hospitalist Physical - Physical exam Narrative exam: GEN: Not in acute distress, lying in bed HEENT: Normocephalic, atraumatic, Neck: supple, No JVD Lungs: Clear to auscultation bilaterally, no wheeze Heart:S1 and S2 regular, no murmurs, rubs or gallop, Abd:soft, non tender, non distended, normal bowel sounds Ext: No edema, no clubbing or cyanosis Neuro: Awake,confused, moves all extremities, - Constitutional Vitals: Temp Pulse Resp BP Pulse Ox 97.0 F L 97 H 20 98/57 98 05/24/18 23:33 05/25/18 01:00 05/24/18 23:33 05/25/18 07:52 05/24/18 23:33 Results - Labs CBC & Chem 7: 05/25/18 05:17 05/25/18 05:17 Labs: Laboratory Last Values WBC 12.2 K/mm3 (4.5-11.0) H 05/25/18 05:17 RBC 3.66 M/mm3 (3.65-5.03) 05/25/18 05:17 Hgb 11.3 gm/dl (11.8-15.2) L 05/25/18 05:17 Hct 33.6 % (35.5-45.6) L 05/25/18 05:17 MCV 92 fl (84-94) 05/25/18 05:17 MCH 31 pg (28-32) 05/25/18 05:17 MCHC 34 % (32-34) 05/25/18 05:17 RDW 14.7 % (13.2-15.2) 05/25/18 05:17 Plt Count 138 K/mm3 (140-440) L 05/25/18 05:17 Lymph % (Auto) 6.4 % (13.4-35.0) L 05/25/18 05:17 [place] % (Auto) 11.6 % (0.0-7.3) H 05/25/18 05:17 Eos % (Auto) 0.0 % (0.0-4.3) 05/25/18 05:17 Baso % (Auto) 0.3 % (0.0-1.8) 05/25/18 05:17 Lymph # 0.8 K/mm3 (1.2-5.4) L 05/25/18 05:17 [place] # 1.4 K/mm3 (0.0-0.8) H 05/25/18 05:17 Eos # 0.0 K/mm3 (0.0-0.4) 05/25/18 05:17 Baso # 0.0 K/mm3 (0.0-0.1) 05/25/18 05:17 Seg Neutrophils % 81.7 % (40.0-70.0) H 05/25/18 05:17 Seg Neutrophils # 9.9 K/mm3 (1.8-7.7) H 05/25/18 05:17 Sodium 136 mmol/L (137-145) L 05/25/18 05:17 Potassium 3.4 mmol/L (3.6-5.0) L D 05/25/18 05:17 Chloride 107.1 mmol/L (98-107) H 05/25/18 05:17 Carbon Dioxide 18 mmol/L (22-30) L 05/25/18 05:17 Anion Gap 14 mmol/L 05/25/18 05:17 BUN 36 mg/dL (9-20) H 05/25/18 05:17 Creatinine 1.8 mg/dL (0.8-1.5) H 05/25/18 05:17 Estimated GFR 45 ml/min 05/25/18 05:17 BUN/Creatinine Ratio 20 % 05/25/18 05:17 Glucose 101 mg/dL (75-100) H 05/25/18 05:17 POC Glucose 94 (70-105) 05/25/18 06:53 Lactic Acid 1.80 mmol/L (0.7-2.0) 05/24/18 06:14 Calcium 7.4 mg/dL (8.4-10.2) L 05/25/18 05:17 Total Bilirubin 0.60 mg/dL (0.1-1.2) 05/23/18 22:03 AST 95 units/L (5-40) H 05/23/18 22:03 ALT 27 units/L (7-56) 05/23/18 22:03 Alkaline Phosphatase 97 units/L (35-129) 05/23/18 22:03 Total Creatine Kinase 5516 units/L (55-170) H 05/25/18 05:17 Total Protein 6.9 g/dL (6.3-8.2) 05/23/18 22:03 Albumin 3.1 g/dL (3.9-5) L 05/23/18 22:03 Albumin/Globulin Ratio 0.8 % 05/23/18 22:03 Urine Color [place] (Yellow) 05/24/18 00:15 Urine Turbidity Cloudy (Clear) 05/24/18 00:15 Urine pH 5.0 (5.0-7.0) 05/24/18 00:15 Ur Specific [place] 1.015 (1.003-1.030) 05/24/18 00:15 Urine Protein 100 mg/dl mg/dL (Negative) 05/24/18 00:15 Urine Glucose (UA) Neg mg/dL (Negative) 05/24/18 00:15 Urine Ketones Neg mg/dL (Negative) 05/24/18 00:15 Urine Blood Lg (Negative) 05/24/18 00:15 Urine Nitrite Neg (Negative) 05/24/18 00:15 Urine Bilirubin Neg (Negative) 05/24/18 00:15 Urine Urobilinogen < 2.0 mg/dL (<2.0) 05/24/18 00:15 Ur Leukocyte Esterase Lg (Negative) 05/24/18 00:15 Urine WBC (Auto) > 182.0 /HPF (0.0-6.0) H 05/24/18 00:15 Urine RBC (Auto) 81.0 /HPF (0.0-6.0) 05/24/18 00:15 U Epithel Cells (Auto) < 1.0 /HPF (0-13.0) 05/24/18 00:15 Urine WBC Clumps 3+ /HPF 05/24/18 00:15 Urine Creatinine 102.8 mg/dL (0.1-20.0) H 05/24/18 00:15 Urine Sodium 37 mmol/L 05/24/18 00:15
[2018-05-25] MEDS: TYLENOL PO PRN (16:18)
[2018-05-25] MEDS: ASPIRIN PO SCH (16:34)
[2018-05-25] MEDS: THERAGRAN Tab PO SCH (16:34)
[2018-05-25] MEDS: COREG PO SCH ×2 (16:34→22:47)
--- NOTE | 2018-05-25 22:39 | Consultation ---
HISTORY OF PRESENT ILLNESS: The patient is a 72-year-old gentleman with severe dementia and neurological focal deficits from stroke who has severe comorbidity, who was admitted to the hospital with progressive deterioration, mild azotemia, creatinine of 2. Summers catheter was placed. He was hypotensive. He had some hematuria, not sure if that is related to the catheterization. He ended up having a CT scan, which showed a prominent prostate. The urine is perfectly clear, draining well. He has no hydronephrosis, but cannot give a history. He has significant aphasia as well. CT scan did not change much from the previous study as well. PAST MEDICAL HISTORY: As mentioned above. SOCIAL HISTORY: From the assisted, unobtainable. FAMILY HISTORY: Noncontributory. PAST SURGICAL HISTORY: No evidence of prostate surgery. ALLERGIES: Negative. MEDICATIONS: Depakote, aspirin, Lipitor. REVIEW OF SYSTEMS: Really unobtainable. PHYSICAL EXAMINATION: GENERAL: He is awake. He is in no distress, but cannot communicate well. ABDOMEN: Soft, nondistended. GENITALIA: Mildly atrophic testes, some mild penile edema. Summers draining well. RECTAL: Could not be cooperative. IMPRESSION: ? Retention. His creatinine is stable at around 1.8. He had some septicemia, catheter draining well. I would leave the catheter and he needs to be treated for his other medical problems and we will see him as an outpatient for workup. JOB# [id number] ERICK/FRANCIS
[2018-05-26 06:17] LABS: Hematocrit 33.9 % (35.5-45.6); Hemoglobin 11.3 gm/dl (11.8-15.2); Mean Corpuscular HGB Conc 33 % (32-34); Mean Corpuscular Volume 92 fl (84-94); Platelet Count 136 K/mm3 (140-440); Red Blood Count 3.67 M/mm3 (3.65-5.03)
[2018-05-26 06:37] LABS: BUN/Creatinine Ratio 23; Blood Urea Nitrogen 30 mg/dL (9-20); Calcium 8.1 mg/dL (8.4-10.2); Hemolysis Index 4
--- NOTE | 2018-05-26 08:05 | Progress Note ---
Assessment and Plan 1. Acute kidney injury: Vasomotor ZAY in the setting of hypotension. CT abdomen was negative for hydronephrosis. Continue IV fluids. Renal function is improving. Monitor renal function. Avoid nephrotoxic agents. Meds dosage based on GFR. 2. FEN: Volume depletion, continue IV fluids. Hypokalemia, replete K. Metabolic acidosis. Monitor lytes. 3. Sepsis / hypotension: Staph aureus bacteremia. Followed by ID. 4. Hematuria: Resolved and evaluated by Urologist. 5. Rhabdomyolysis: CK level improving. 6. Acute encephalopathy. Subjective Date of service: 05/26/18 Principal diagnosis: t Interval history: Patient was seen and examined at the bedside. Objective - Vital Signs Vital signs: Vital Signs - 12hr 05/25/18 05/26/18 05/26/18 22:47 01:00 01:22 Temperature 97.8 F Pulse Rate 85 85 78 Respiratory 17 Rate Blood Pressure 110/70 95/49 O2 Sat by Pulse 98 Oximetry 05/26/18 04:32 Temperature 98.0 F Pulse Rate 81 Respiratory 17 Rate Blood Pressure 93/56 O2 Sat by Pulse 100 Oximetry - General Appearance General appearance: well-developed, appears stated age, other (not in distress) EENT: ATNC Neck: supple Respiratory: Present: Clear to Ascultation Cardiology: regular, S1S2, no murmurs Gastrointestinal: normoactive bowel sounds, no tenderness, no distended, other (Summers catheter, clear urine) Integumentary: no rash, warm and dry Neurologic: other (able to tell his name, muffled speech) Musculoskeletal: other (no edema) - Lab 05/26/18 05:14 05/26/18 05:14 Most recent lab results Calcium 8.1 mg/dL (8.4-10.2) L 05/26/18 05:14 Phosphorus 3.10 mg/dL (2.5-4.5) 05/26/18 05:14 Magnesium 1.90 mg/dL (1.7-2.3) 05/26/18 05:14 Urine Creatinine 102.8 mg/dL (0.1-20.0) H 05/24/18 00:15 Urine Sodium 37 mmol/L 05/24/18 00:15 Medications & Allergies - Medications Allergies/Adverse Reactions: Allergies No Known Allergies Allergy (Verified 04/03/18 10:23) Home Medications: Home Medications Medication Instructions Recorded Confirmed Last Taken Type carBAMazepine [TEGretol] 400 mg PO Q8HR tablet 09/24/14 05/24/18 01/25/17 Rx Acetaminophen [Non-Aspirin Pain 500 mg PO Q4H PRN 01/26/17 05/24/18 01/26/17 History Relief] Carvedilol [Coreg] 6.25 mg PO BID tablet 01/29/17 05/24/[address] [Depestee Santizo] 250 mg PO TID tablet 01/29/17 05/24/18 Unknown Rx Multivitamin Tab [Multiple Vitamin 1 each PO DAILY tablet 01/29/17 05/24/18 Unknown Rx TAB (Theragran)] Aspirin [Aspirin TAB] 325 mg PO QDAY #30 tablet 04/13/18 05/24/18 Unknown Rx AtorvaSTATin [Lipitor] 40 mg PO QHS #30 tablet 04/13/18 05/24/18 Unknown Rx Active Medications: Generic Name Dose Route Start Last Admin Trade Name Gerberq PRN Reason Stop Dose Admin Acetaminophen 650 mg 05/24/18 00:44 05/25/18 16:18 Tylenol PO 650 mg Q4H PRN Administration Fever >101 Aspirin 325 mg 05/24/18 10:00 05/25/18 16:34 Aspirin PO Not Given QDAY GREGORIO Carbamazepine 400 mg 05/24/18 22:00 05/26/18 06:17 Tegretol PO 400 mg Q8HR GREGORIO Administration Carvedilol 6.25 mg 05/24/18 10:00 05/25/18 22:47 Coreg PO 6.25 mg BID GREGORIO Administration Heparin Sodium (Porcine) 5,000 unit 05/24/18 12:45 05/25/18 22:47 Heparin SUB-Q 5,000 unit Q12HR GREGORIO Administration Sodium Chloride 1,000 mls @ 125 mls/hr 05/24/18 01:00 05/24/18 17:32 Nacl 0.9% 1000 Ml IV 125 mls/hr DIRECT GREGORIO Administration Cefepime HCl 1 gm in 100 mls @ 200 mls/hr 05/24/18 15:00 05/25/18 22:50 Maxipime/Ns 1 Gm/100 Ml IV 200 mls/hr Q12HR GREGORIO Administration Protocol Vancomycin HCl 1 gm in 250 mls @ 166.667 mls/hr 05/26/18 10:00 Vancomycin/Ns 1 Gm/250 Ml IV QDAY [facility] Multivitamins 1 each 05/24/18 08:00 05/25/18 16:34 Theragran Tab PO Not Given 0800 [facility] Ondansetron HCl 4 mg 05/24/18 00:48 Zofran IV Q8H PRN Nausea And Vomiting Valproic Acid 250 mg 05/24/18 22:00 05/25/18 22:47 Depakene Liq FEEDTUBE 250 mg TID GREGORIO Administration
[2018-05-26] MEDS: KLOR-CON PO SCH ×2 (09:00→17:43)
[2018-05-26] MEDS: ASPIRIN PO SCH (10:28)
[2018-05-26] MEDS: HEPARIN SUB-Q SCH ×2 (10:28→21:32)
[2018-05-26] MEDS: COREG PO SCH ×2 (10:28→21:33)
[2018-05-26] MEDS: THERAGRAN Tab PO SCH (10:33)
[2018-05-26] MEDS: DepaKENE Liq FEEDTUBE SCH ×3 (10:33→21:33)
--- NOTE | 2018-05-26 10:43 | Progress Note ---
Assessment and Plan Cultures: 05/23/2018 blood cultures: MRSA 05/25/2018: blood cultures: no growth thus far 05/25/2018; Urine: no growth A/P: 72-year-old male with dementia, urinary retention, indwelling Summers catheter, diabetes, CVA, admitted with: 1) Sepsis: Improved, leukocytosis trending down, likely secondary to urinary tract infection and hematuria with what appears to be a displaced Summers catheter. Discontinue levofloxacin and started empirically on IV cefepime to cover for complicated UTI. Urology has been consulted. 2) MRSA Bacteremia, source unknown, Start IV vancomycin. Repeat blood cultures ordered. Follow-up ID and sensitivity. TTE shows no valvular vegetation 2) Acute encephalopathy: On background of severe dementia now appears to be at baseline. 3) ZAY: renally dose abx. Nephrology consulted. 4) UTI - U/A with pyuria, Urine culture shows no growth 5) Acute Right Knee pain: will order 4 view xray of right knee. Ortho consulted Recs: Contnue Vancomycin with PK based dosing Continue IV cefepime Awaiting urology evaluation f/u blood cultures f/u right knee xray results d/w Dr. Nora Caballero will be process automation engineer this weekend , please call for question [email or web address] M: [phone] O:[phone] Subjective Date of service: 05/26/18 Principal diagnosis: t Interval history: Patient seen and examined. Non verbal at baseline, somnolent. Nurses notes, labs and imaging reviewed. No family at bedside. Objective - Exam Narrative Exam: Constitutional: Somnolent. No acute disress. Head, Ears, Nose: Normocephalic, atraumatic. External ears, nose normal Eyes: Conjunctivae/corneas clear. No icterus. No ptosis. Neck: Supple, no meningeal signs Oral: several missing teeth, no thrush Cardiovascular: S1, S2 normal. Respiratory: Good air entry, clear to auscultation bilaterally GI: bowel sounds + Summers catheter in place. Musculoskeletal: No pedal edema, no cyanosis. Skin: No rash or abscess Hem/Lymphatic: No palpable cervical or supraclavicular nodes. No lymphangitis Psych: no agitation Neurological: somnolent. - Constitutional Vitals: Vital Signs Temp Pulse Resp BP Pulse Ox 97.7 F 96 H 20 137/72 99 05/26/18 10:14 05/26/18 10:14 05/26/18 10:14 05/26/18 10:14 05/26/18 10:14 Temperature -Last 24 Hours Temperature 97.7 F Temperature 98.0 F Temperature 97.8 F Temperature 98.0 F Temperature 97.6 F - Labs CBC & Chem 7: 05/26/18 05:14 05/26/18 05:14 Labs: Abnormal lab results 05/26/18 05/26/18 Range/Units 05:14 05:14 WBC 12.4 H (4.5-11.0) K/mm3 Hgb 11.3 L (11.8-15.2) gm/dl Hct 33.9 L (35.5-45.6) % Plt Count 136 L (140-440) K/mm3 Potassium 3.5 L (3.6-5.0) mmol/L Chloride 110.9 H (98-107) mmol/L Carbon Dioxide 20 L (22-30) mmol/L BUN 30 H (9-20) mg/dL Glucose 103 H (75-100) mg/dL Calcium 8.1 L (8.4-10.2) mg/dL Total Creatine Kinase 2448 H (55-170) units/L
[2018-05-26] MEDS: MAXIPIME/NS 1 GM/100 ML 1 GM/100 ML BAG IV SCH ×2 (10:46→21:32)
[2018-05-26] MEDS: VANCOMYCIN/NS 1 GM/250 ML 1 GM/250 ML BAG IV SCH (10:49)
[2018-05-26] MEDS: KCL 10MEQ/100ML 10 MEQ/100 ML BAG IV SCH ×2 (10:54→11:55)
--- NOTE | 2018-05-26 13:03 | Progress Note ---
Assessment and Plan Assessment and plan: MRSA Sepsis Vancomycin ID Physician following Bacteremia due to staph aureus. Started Vancomycin UTI ZAY. due to vasomotor nephropathy Improving Toxic metabolic encephalopathy. neurochecks Dementia Gross hematuria, now resolved patient evaluated by Dr. Paz CT Abd : no hydronephrosis Urinary retention keep solano in Patient evaluated by Dr. Stevens Full code History Interval history: Altered mental status pain right knee Hospitalist Physical - Physical exam Narrative exam: GEN: Not in acute distress, lying in bed HEENT: Normocephalic, atraumatic, Neck: supple, No JVD Lungs: Clear to auscultation bilaterally, no wheeze Heart:S1 and S2 regular, no murmurs, rubs or gallop, Abd:soft, non tender, non distended, normal bowel sounds Ext: No edema, no clubbing or cyanosis Neuro: Awake,confused, moves all extremities, - Constitutional Vitals: Temp Pulse Resp BP Pulse Ox 97.7 F 96 H 20 137/72 99 05/26/18 10:14 05/26/18 10:14 05/26/18 10:14 05/26/18 10:14 05/26/18 10:14 General appearance: Present: mild distress Results - Labs CBC & Chem 7: 05/26/18 05:14 05/26/18 05:14 Labs: Laboratory Last Values WBC 12.4 K/mm3 (4.5-11.0) H 05/26/18 05:14 RBC 3.67 M/mm3 (3.65-5.03) 05/26/18 05:14 Hgb 11.3 gm/dl (11.8-15.2) L 05/26/18 05:14 Hct 33.9 % (35.5-45.6) L 05/26/18 05:14 MCV 92 fl (84-94) 05/26/18 05:14 MCH 31 pg (28-32) 05/26/18 05:14 MCHC 33 % (32-34) 05/26/18 05:14 RDW 15.0 % (13.2-15.2) 05/26/18 05:14 Plt Count 136 K/mm3 (140-440) L 05/26/18 05:14 Lymph % (Auto) 6.4 % (13.4-35.0) L 05/25/18 05:17 [place] % (Auto) 11.6 % (0.0-7.3) H 05/25/18 05:17 Eos % (Auto) 0.0 % (0.0-4.3) 05/25/18 05:17 Baso % (Auto) 0.3 % (0.0-1.8) 05/25/18 05:17 Lymph # 0.8 K/mm3 (1.2-5.4) L 05/25/18 05:17 [place] # 1.4 K/mm3 (0.0-0.8) H 05/25/18 05:17 Eos # 0.0 K/mm3 (0.0-0.4) 05/25/18 05:17 Baso # 0.0 K/mm3 (0.0-0.1) 05/25/18 05:17 Seg Neutrophils % 81.7 % (40.0-70.0) H 05/25/18 05:17 Seg Neutrophils # 9.9 K/mm3 (1.8-7.7) H 05/25/18 05:17 Sodium 143 mmol/L (137-145) D 05/26/18 05:14 Potassium 3.5 mmol/L (3.6-5.0) L 05/26/18 05:14 Chloride 110.9 mmol/L (98-107) H 05/26/18 05:14 Carbon Dioxide 20 mmol/L (22-30) L 05/26/18 05:14 Anion Gap 16 mmol/L 05/26/18 05:14 BUN 30 mg/dL (9-20) H 05/26/18 05:14 Creatinine 1.3 mg/dL (0.8-1.5) 05/26/18 05:14 Estimated GFR > 60 ml/min 05/26/18 05:14 BUN/Creatinine Ratio 23 % 05/26/18 05:14 Glucose 103 mg/dL (75-100) H 05/26/18 05:14 POC Glucose 86 (70-105) 05/26/18 06:37 Lactic Acid 1.80 mmol/L (0.7-2.0) 05/24/18 06:14 Calcium 8.1 mg/dL (8.4-10.2) L 05/26/18 05:14 Phosphorus 3.10 mg/dL (2.5-4.5) 05/26/18 05:14 Magnesium 1.90 mg/dL (1.7-2.3) 05/26/18 05:14 Total Bilirubin 0.60 mg/dL (0.1-1.2) 05/23/18 22:03 AST 95 units/L (5-40) H 05/23/18 22:03 ALT 27 units/L (7-56) 05/23/18 22:03 Alkaline Phosphatase 97 units/L (35-129) 05/23/18 22:03 Total Creatine Kinase 2448 units/L (55-170) H 05/26/18 05:14 Total Protein 6.9 g/dL (6.3-8.2) 05/23/18 22:03 Albumin 3.1 g/dL (3.9-5) L 05/23/18 22:03 Albumin/Globulin Ratio 0.8 % 05/23/18 22:03 Urine Color [place] (Yellow) 05/24/18 00:15 Urine Turbidity Cloudy (Clear) 05/24/18 00:15 Urine pH 5.0 (5.0-7.0) 05/24/18 00:15 Ur Specific [place] 1.015 (1.003-1.030) 05/24/18 00:15 Urine Protein 100 mg/dl mg/dL (Negative) 05/24/18 00:15 Urine Glucose (UA) Neg mg/dL (Negative) 05/24/18 00:15 Urine Ketones Neg mg/dL (Negative) 05/24/18 00:15 Urine Blood Lg (Negative) 05/24/18 00:15 Urine Nitrite Neg (Negative) 05/24/18 00:15 Urine Bilirubin Neg (Negative) 05/24/18 00:15 Urine Urobilinogen < 2.0 mg/dL (<2.0) 05/24/18 00:15 Ur Leukocyte Esterase Lg (Negative) 05/24/18 00:15 Urine WBC (Auto) > 182.0 /HPF (0.0-6.0) H 05/24/18 00:15 Urine RBC (Auto) 81.0 /HPF (0.0-6.0) 05/24/18 00:15 U Epithel Cells (Auto) < 1.0 /HPF (0-13.0) 05/24/18 00:15 Urine WBC Clumps 3+ /HPF 05/24/18 00:15 Urine Creatinine 102.8 mg/dL (0.1-20.0) H 05/24/18 00:15 Urine Sodium 37 mmol/L 05/24/18 00:15
[2018-05-26] MEDS: NACL 0.9% 1000 ML 1,000 ML IV SCH (17:40)
--- NOTE | 2018-05-26 21:19 | XRay Report ---
FINAL REPORT EXAM: XR KNEE 3V RT HISTORY: acute right knee pain TECHNIQUE: Frontal, lateral and oblique views right knee Comparison: None FINDINGS: There is no evidence of fracture or subluxation. The tibia femoral joint appears to be maintained. Evaluation of the joint space of the patellofemoral joint is limited by obliquity of the lateral view . The soft tissues are notable for atherosclerotic vascular calcification IMPRESSION: 1. No plain film evidence of an acute bony or soft tissue abnormality. If further imaging is required, MRI may be helpful.
[2018-05-27] MEDS: NACL 0.9% 1000 ML 1,000 ML IV SCH (02:28)
[2018-05-27 06:41] LABS: Hematocrit 34.7 % (35.5-45.6); Hemoglobin 11.7 gm/dl (11.8-15.2); Mean Corpuscular HGB Conc 34 % (32-34); Mean Corpuscular Volume 92 fl (84-94); Platelet Count 133 K/mm3 (140-440); Red Blood Count 3.78 M/mm3 (3.65-5.03); Red Cell Distribution Width 15.4 % (13.2-15.2)
[2018-05-27 06:59] LABS: BUN/Creatinine Ratio 24; Blood Urea Nitrogen 22 mg/dL (9-20); Hemolysis Index 4
[2018-05-27] MEDS: MAXIPIME/NS 1 GM/100 ML 1 GM/100 ML BAG IV SCH (09:32)
--- NOTE | 2018-05-27 09:33 | Progress Note ---
Assessment and Plan 1. Acute kidney injury: Vasomotor ZAY in the setting of hypotension. CT abdomen was negative for hydronephrosis. Continue IV fluids. Renal function is better. Monitor renal function. Avoid nephrotoxic agents. Meds dosage based on GFR. 2. FEN: Volume depletion, continue IV fluids. Hypokalemia, replete K. Metabolic acidosis. Monitor lytes. 3. Sepsis / hypotension: Staph aureus bacteremia. Followed by ID. 4. Hematuria: Resolved and evaluated by Urologist. 5. Rhabdomyolysis: CK level improving. 6. Acute encephalopathy. 7. HTN: Increase Coreg. Subjective Date of service: 05/27/18 Principal diagnosis: t Interval history: Patient was seen and examined at the bedside. Objective - Vital Signs Vital signs: Vital Signs - 12hr 05/27/18 05/27/18 00:07 04:00 Temperature 98.0 F Pulse Rate 87 79 Respiratory 18 Rate Blood Pressure 146/70 O2 Sat by Pulse 100 Oximetry - General Appearance General appearance: well-developed, appears stated age, other (not in distress) EENT: ATNC, PERRL Neck: supple Respiratory: Present: Clear to Ascultation Cardiology: regular, S1S2, no murmurs Gastrointestinal: normoactive bowel sounds, no tenderness, no distended, other (Summers catheter) Integumentary: no rash, warm and dry Neurologic: other (barely able to tell his name and follow any command) Musculoskeletal: other (no edema) - Lab 05/27/18 05:22 05/27/18 05:22 Most recent lab results Calcium 8.0 mg/dL (8.4-10.2) L 05/27/18 05:22 Phosphorus 3.10 mg/dL (2.5-4.5) 05/26/18 05:14 Magnesium 1.90 mg/dL (1.7-2.3) 05/26/18 05:14 Urine Creatinine 102.8 mg/dL (0.1-20.0) H 05/24/18 00:15 Urine Sodium 37 mmol/L 05/24/18 00:15 Medications & Allergies - Medications Allergies/Adverse Reactions: Allergies No Known Allergies Allergy (Verified 04/03/18 10:23) Home Medications: Home Medications Medication Instructions Recorded Confirmed Last Taken Type carBAMazepine [TEGretol] 400 mg PO Q8HR tablet 06/05/24/18 01/25/17 Rx Acetaminophen [Non-Aspirin Pain 500 mg PO Q4H PRN 01/26/17 05/24/18 01/26/17 History Relief] Carvedilol [Coreg] 6.25 mg PO BID tablet 01/29/17 05/24/18 Unknown Rx Divalproex [Sergei Santizo] 250 mg PO TID tablet 01/29/17 05/24/18 Unknown Rx Multivitamin Tab [Multiple Vitamin 1 each PO DAILY tablet 01/29/17 05/24/18 Unknown Rx TAB (Theragran)] Aspirin [Aspirin TAB] 325 mg PO QDAY #30 tablet 04/13/18 05/24/18 Unknown Rx AtorvaSTATin [Lipitor] 40 mg PO QHS #30 tablet 04/13/18 05/24/18 Unknown Rx Active Medications: Generic Name Dose Route Start Last Admin Trade Name Freq PRN Reason Stop Dose Admin Acetaminophen 650 mg 05/24/18 00:44 05/25/18 16:18 Tylenol PO 650 mg Q4H PRN Administration Fever >101 Aspirin 325 mg 05/24/18 10:00 05/26/18 10:28 Aspirin PO 325 mg QDAY GREGORIO Administration Carbamazepine 400 mg 05/24/18 22:00 05/27/18 05:18 Tegretol PO 400 mg Q8HR GREGORIO Administration Carvedilol 6.25 mg 05/24/18 10:00 05/26/18 21:33 Coreg PO 6.25 mg BID GREGORIO Administration Heparin Sodium (Porcine) 5,000 unit 05/24/18 12:45 05/26/18 21:32 Heparin SUB-Q 5,000 unit Q12HR GREGORIO Administration Sodium Chloride 1,000 mls @ 125 mls/hr 05/24/18 01:00 05/27/18 02:28 Nacl 0.9% 1000 Ml IV 125 mls/hr DIRECT GREGORIO Administration Cefepime HCl 1 gm in 100 mls @ 200 mls/hr 05/24/18 15:00 05/26/18 21:32 Maxipime/Ns 1 Gm/100 Ml IV 200 mls/hr Q12HR GREGORIO Administration Protocol Vancomycin HCl 1 gm in 250 mls @ 166.667 mls/hr 05/26/18 10:00 05/26/18 10:49 Vancomycin/Ns 1 Gm/250 Ml IV 166.667 mls/hr QDAY GREGORIO Administration Potassium Chloride 10 meq in 100 mls @ 100 mls/hr 05/27/18 09:00 Kcl 10meq/100ml IV 05/27/18 10:59 Q1H GREGORIO Multivitamins 1 each 05/24/18 08:00 05/26/18 10:33 Theragran Tab PO 1 each 0800 GREGORIO Administration Ondansetron HCl 4 mg 05/24/18 00:48 Zofran IV Q8H PRN Nausea And Vomiting Valproic Acid 250 mg 05/24/18 22:00 05/26/18 21:33 Depakene Liq FEEDTUBE 250 mg TID GREGORIO Administration
--- NOTE | 2018-05-27 10:06 | Progress Note ---
Assessment and Plan Assessment and plan: MRSA Sepsis Vancomycin ID Physician following Bacteremia due to staph aureus. Continue Vancomycin UTI ZAY. due to vasomotor nephropathy Resolved. Cr 0.9 Toxic metabolic encephalopathy. neurochecks Dementia Gross hematuria, now resolved patient evaluated by Dr. Paz CT Abd : no hydronephrosis Urinary retention keep solano in Patient evaluated by Dr. Paz Subacute right hip fracture Ortho to evaluate Full code History Interval history: Altered mental status pain right knee Hospitalist Physical - Physical exam Narrative exam: GEN: Not in acute distress, lying in bed HEENT: Normocephalic, atraumatic, Neck: supple, No JVD Lungs: Clear to auscultation bilaterally, no wheeze Heart:S1 and S2 regular, no murmurs, rubs or gallop, Abd:soft, non tender, non distended, normal bowel sounds Ext: No edema, no clubbing or cyanosis Neuro: Awake,confused, moves all extremities, - Constitutional Vitals: Temp Pulse Resp BP Pulse Ox 98.0 F 79 18 146/70 100 05/27/18 00:07 05/27/18 04:00 05/27/18 00:07 05/27/18 00:07 05/27/18 00:07 Results - Labs CBC & Chem 7: 05/27/18 05:22 05/27/18 05:22 Labs: Laboratory Last Values WBC 9.2 K/mm3 (4.5-11.0) 05/27/18 05:22 RBC 3.78 M/mm3 (3.65-5.03) 05/27/18 05:22 Hgb 11.7 gm/dl (11.8-15.2) L 05/27/18 05:22 Hct 34.7 % (35.5-45.6) L 05/27/18 05:22 MCV 92 fl (84-94) 05/27/18 05:22 MCH 31 pg (28-32) 05/27/18 05:22 MCHC 34 % (32-34) 05/27/18 05:22 RDW 15.4 % (13.2-15.2) H 05/27/18 05:22 Plt Count 133 K/mm3 (140-440) L 05/27/18 05:22 Lymph % (Auto) 6.4 % (13.4-35.0) L 05/25/18 05:17 [place] % (Auto) 11.6 % (0.0-7.3) H 05/25/18 05:17 Eos % (Auto) 0.0 % (0.0-4.3) 05/25/18 05:17 Baso % (Auto) 0.3 % (0.0-1.8) 05/25/18 05:17 Lymph # 0.8 K/mm3 (1.2-5.4) L 05/25/18 05:17 [place] # 1.4 K/mm3 (0.0-0.8) H 05/25/18 05:17 Eos # 0.0 K/mm3 (0.0-0.4) 05/25/18 05:17 Baso # 0.0 K/mm3 (0.0-0.1) 05/25/18 05:17 Seg Neutrophils % 81.7 % (40.0-70.0) H 05/25/18 05:17 Seg Neutrophils # 9.9 K/mm3 (1.8-7.7) H 05/25/18 05:17 Sodium 144 mmol/L (137-145) 05/27/18 05:22 Potassium 3.2 mmol/L (3.6-5.0) L 05/27/18 05:22 Chloride 116.1 mmol/L (98-107) H 05/27/18 05:22 Carbon Dioxide 16 mmol/L (22-30) L 05/27/18 05:22 Anion Gap 15 mmol/L 05/27/18 05:22 BUN 22 mg/dL (9-20) H 05/27/18 05:22 Creatinine 0.9 mg/dL (0.8-1.5) 05/27/18 05:22 Estimated GFR > 60 ml/min 05/27/18 05:22 BUN/Creatinine Ratio 24 % 05/27/18 05:22 Glucose 79 mg/dL (75-100) 05/27/18 05:22 POC Glucose 95 (70-105) 05/27/18 06:43 Lactic Acid 1.80 mmol/L (0.7-2.0) 05/24/18 06:14 Calcium 8.0 mg/dL (8.4-10.2) L 05/27/18 05:22 Phosphorus 3.10 mg/dL (2.5-4.5) 05/26/18 05:14 Magnesium 1.90 mg/dL (1.7-2.3) 05/26/18 05:14 Total Bilirubin 0.60 mg/dL (0.1-1.2) 05/23/18 22:03 AST 95 units/L (5-40) H 05/23/18 22:03 ALT 27 units/L (7-56) 05/23/18 22:03 Alkaline Phosphatase 97 units/L (35-129) 05/23/18 22:03 Total Creatine Kinase 966 units/L (55-170) H 05/27/18 05:22 Total Protein 6.9 g/dL (6.3-8.2) 05/23/18 22:03 Albumin 3.1 g/dL (3.9-5) L 05/23/18 22:03 Albumin/Globulin Ratio 0.8 % 05/23/18 22:03 Urine Color [place] (Yellow) 05/24/18 00:15 Urine Turbidity Cloudy (Clear) 05/24/18 00:15 Urine pH 5.0 (5.0-7.0) 05/24/18 00:15 Ur Specific [place] 1.015 (1.003-1.030) 05/24/18 00:15 Urine Protein 100 mg/dl mg/dL (Negative) 05/24/18 00:15 Urine Glucose (UA) Neg mg/dL (Negative) 05/24/18 00:15 Urine Ketones Neg mg/dL (Negative) 05/24/18 00:15 Urine Blood Lg (Negative) 05/24/18 00:15 Urine Nitrite Neg (Negative) 05/24/18 00:15 Urine Bilirubin Neg (Negative) 05/24/18 00:15 Urine Urobilinogen < 2.0 mg/dL (<2.0) 05/24/18 00:15 Ur Leukocyte Esterase Lg (Negative) 05/24/18 00:15 Urine WBC (Auto) > 182.0 /HPF (0.0-6.0) H 05/24/18 00:15 Urine RBC (Auto) 81.0 /HPF (0.0-6.0) 05/24/18 00:15 U Epithel Cells (Auto) < 1.0 /HPF (0-13.0) 05/24/18 00:15 Urine WBC Clumps 3+ /HPF 05/24/18 00:15 Urine Creatinine 102.8 mg/dL (0.1-20.0) H 05/24/18 00:15 Urine Sodium 37 mmol/L 05/24/18 00:15
[2018-05-27] MEDS: KCL 10MEQ/100ML 10 MEQ/100 ML BAG IV SCH ×2 (11:34→12:39)
[2018-05-27] MEDS ORDERED: COREG PO SCH (11:43)
[2018-05-27] MEDS: DepaKENE Liq FEEDTUBE SCH ×3 (12:35→22:55)
[2018-05-27] MEDS: HEPARIN SUB-Q SCH ×2 (12:35→22:54)
[2018-05-27] MEDS: THERAGRAN Tab PO SCH (12:36)
[2018-05-27] MEDS: ASPIRIN PO SCH (12:38)
[2018-05-27] MEDS: POTASSIUM CHLORIDE PO SCH ×2 (12:53→19:40)
--- NOTE | 2018-05-27 14:05 | Progress Note ---
Assessment and Plan Imaging: Right knee Xray images reviewed - no acute abnormality noted. Cultures: 05/23/2018 blood cultures: MRSA 05/25/2018 blood cultures: no growth thus far 05/25/2018 Urine: no growth A/P: 72-year-old male with dementia, urinary retention, indwelling Summers catheter, diabetes, CVA, admitted with: 1) Sepsis: Improved, possibly secondary to urinary tract infection and hematuria. Seen by urology. Urine cultures negative, discontinued Cefepime. 2) MRSA Bacteremia, source unknown, possibly urine, although MRSA is not a common UTI pathogen but can happen in patients with indwelling Summers and there was apparently some hematuria prior to admission. TTE shows no valvular vegetation. Plan for 4 weeks of IV Vancomycin 2) Acute encephalopathy: On background of severe dementia now appears to be at baseline. 3) ZAY: renally dose abx. Improving. 4) UTI - U/A with pyuria, Urine culture shows no growth. 5) Acute Right Knee pain: X-ray reviewed, no abnormality noted. Recs: Discontinued Cefepime Continue IV Vancomycin with PK based dosing, target trough: 10-20 mcg/ml Once blood cultures negative at 48 hours, can insert PICC line If repeat blood cultures are positive, will need ELIAN Plan for 4 weeks of IV Vancomycin from negative blood cultures d/w Dr. Nora Caballero MD [facility] C: [phone] O: [phone] F: [phone] Subjective Date of service: 05/27/18 Interval history: No fever. No new complaints. Discussed with sister at bedside. Objective - Exam Narrative Exam: Physical Exam: Constitutional: Alert. No acute distress Head, Ears, Nose: Normocephalic, atraumatic. External ears, nose normal Eyes: Conjunctivae/corneas clear. No icterus. No ptosis. Neck: Supple, no meningeal signs Oral: several missing teeth, no thrush Cardiovascular: S1, S2 normal. Respiratory: Good air entry, clear to auscultation bilaterally GI: bowel sounds +. Summers catheter in place. Musculoskeletal: No pedal edema, no cyanosis. Skin: No rash or abscess Hem/Lymphatic: No palpable cervical or supraclavicular nodes. No lymphangitis Psych: no agitation Neurological: Awake, alert, able to follow basic commands but not oriented. - Constitutional Vitals: Vital Signs Temp Pulse Resp BP Pulse Ox 98.0 F 97 H 18 148/100 100 05/27/18 04:46 05/27/18 13:12 05/27/18 04:46 05/27/18 13:12 05/27/18 13:12 Temperature -Last 24 Hours Temperature 98.0 F Temperature 98.0 F Temperature 98.0 F Temperature 99.0 F Temperature 97.9 F - Labs CBC & Chem 7: 05/27/18 05:22 05/27/18 05:22 Labs: Abnormal lab results 05/27/18 05/27/18 Range/Units 05:22 05:22 Hgb 11.7 L (11.8-15.2) gm/dl Hct 34.7 L (35.5-45.6) % RDW 15.4 H (13.2-15.2) % Plt Count 133 L (140-440) K/mm3 Potassium 3.2 L (3.6-5.0) mmol/L Chloride 116.1 H (98-107) mmol/L Carbon Dioxide 16 L (22-30) mmol/L BUN 22 H (9-20) mg/dL Calcium 8.0 L (8.4-10.2) mg/dL Total Creatine Kinase 966 H (55-170) units/L
[2018-05-27] MEDS: VANCOMYCIN/NS 1 GM/250 ML 1 GM/250 ML BAG IV SCH (16:47)
[2018-05-27] MEDS ORDERED: MAXIPIME/NS 1 GM/100 ML 1 GM/100 ML BAG IV SCH (18:00)
[2018-05-27] MEDS: COREG PO SCH (22:54)
[2018-05-28] MEDS: COREG PO SCH ×3 (04:05→22:48)
[2018-05-28] MEDS: VANCOMYCIN/NS 1 GM/250 ML 1 GM/250 ML BAG IV SCH ×3 (04:05→17:21)
[2018-05-28 07:27] LABS: Hematocrit 37.6 % (35.5-45.6); Hemoglobin 12.9 gm/dl (11.8-15.2); Mean Corpuscular HGB Conc 34 % (32-34); Mean Corpuscular Volume 91 fl (84-94); Platelet Count 149 K/mm3 (140-440); Red Blood Count 4.14 M/mm3 (3.65-5.03); Red Cell Distribution Width 15.4 % (13.2-15.2)
[2018-05-28 07:44] LABS: BUN/Creatinine Ratio 20; Blood Urea Nitrogen 16 mg/dL (9-20); Calcium 8.5 mg/dL (8.4-10.2); Hemolysis Index 100
--- NOTE | 2018-05-28 09:36 | Progress Note ---
Assessment and Plan Assessment and plan: MRSA Sepsis Vancomycin ID Physician following Bacteremia due to staph aureus. Continue Vancomycin UTI ZAY. due to vasomotor nephropathy Resolved. Cr 0.8 Toxic metabolic encephalopathy. neurochecks Dementia Gross hematuria, now resolved patient evaluated by Dr. Paz CT Abd : no hydronephrosis Urinary retention keep solano in Patient evaluated by Dr. Paz Subacute right hip fracture Ortho consulted Full code History Interval history: Altered mental status, improved No more hematuria Hospitalist Physical - Physical exam Narrative exam: GEN: Not in acute distress, lying in bed HEENT: Normocephalic, atraumatic, Neck: supple, No JVD Lungs: Clear to auscultation bilaterally, no wheeze Heart:S1 and S2 regular, no murmurs, rubs or gallop, Abd:soft, non tender, non distended, normal bowel sounds Ext: No edema, no clubbing or cyanosis Neuro: Awake,confused, moves all extremities, - Constitutional Vitals: Temp Pulse Resp BP Pulse Ox 98.4 F 86 18 161/90 97 05/28/18 05:06 05/28/18 05:06 05/28/18 05:06 05/28/18 05:06 05/28/18 05:06 Results - Labs CBC & Chem 7: 05/28/18 05:49 05/28/18 05:49 Labs: Laboratory Last Values WBC 8.9 K/mm3 (4.5-11.0) 05/28/18 05:49 RBC 4.14 M/mm3 (3.65-5.03) 05/28/18 05:49 Hgb 12.9 gm/dl (11.8-15.2) 05/28/18 05:49 Hct 37.6 % (35.5-45.6) 05/28/18 05:49 MCV 91 fl (84-94) 05/28/18 05:49 MCH 31 pg (28-32) 05/28/18 05:49 MCHC 34 % (32-34) 05/28/18 05:49 RDW 15.4 % (13.2-15.2) H 05/28/18 05:49 Plt Count 149 K/mm3 (140-440) 05/28/18 05:49 Lymph % (Auto) 6.4 % (13.4-35.0) L 05/25/18 05:17 [place] % (Auto) 11.6 % (0.0-7.3) H 05/25/18 05:17 Eos % (Auto) 0.0 % (0.0-4.3) 05/25/18 05:17 Baso % (Auto) 0.3 % (0.0-1.8) 05/25/18 05:17 Lymph # 0.8 K/mm3 (1.2-5.4) L 05/25/18 05:17 [place] # 1.4 K/mm3 (0.0-0.8) H 05/25/18 05:17 Eos # 0.0 K/mm3 (0.0-0.4) 05/25/18 05:17 Baso # 0.0 K/mm3 (0.0-0.1) 05/25/18 05:17 Seg Neutrophils % 81.7 % (40.0-70.0) H 05/25/18 05:17 Seg Neutrophils # 9.9 K/mm3 (1.8-7.7) H 05/25/18 05:17 Sodium 142 mmol/L (137-145) 05/28/18 05:49 Potassium 4.5 mmol/L (3.6-5.0) D 05/28/18 05:49 Chloride 112.0 mmol/L (98-107) H 05/28/18 05:49 Carbon Dioxide 19 mmol/L (22-30) L 05/28/18 05:49 Anion Gap 16 mmol/L 05/28/18 05:49 BUN 16 mg/dL (9-20) 05/28/18 05:49 Creatinine 0.8 mg/dL (0.8-1.5) 05/28/18 05:49 Estimated GFR > 60 ml/min 05/28/18 05:49 BUN/Creatinine Ratio 20 % 05/28/18 05:49 Glucose 103 mg/dL (75-100) H 05/28/18 05:49 POC Glucose 132 (70-105) H 05/28/18 06:31 Lactic Acid 1.80 mmol/L (0.7-2.0) 05/24/18 06:14 Calcium 8.5 mg/dL (8.4-10.2) 05/28/18 05:49 Phosphorus 3.10 mg/dL (2.5-4.5) 05/26/18 05:14 Magnesium 1.90 mg/dL (1.7-2.3) 05/26/18 05:14 Total Bilirubin 0.60 mg/dL (0.1-1.2) 05/23/18 22:03 AST 95 units/L (5-40) H 05/23/18 22:03 ALT 27 units/L (7-56) 05/23/18 22:03 Alkaline Phosphatase 97 units/L (35-129) 05/23/18 22:03 Total Creatine Kinase 645 units/L (55-170) H 05/28/18 05:49 Total Protein 6.9 g/dL (6.3-8.2) 05/23/18 22:03 Albumin 3.1 g/dL (3.9-5) L 05/23/18 22:03 Albumin/Globulin Ratio 0.8 % 05/23/18 22:03 Urine Color [place] (Yellow) 05/24/18 00:15 Urine Turbidity Cloudy (Clear) 05/24/18 00:15 Urine pH 5.0 (5.0-7.0) 05/24/18 00:15 Ur Specific [place] 1.015 (1.003-1.030) 05/24/18 00:15 Urine Protein 100 mg/dl mg/dL (Negative) 05/24/18 00:15 Urine Glucose (UA) Neg mg/dL (Negative) 05/24/18 00:15 Urine Ketones Neg mg/dL (Negative) 05/24/18 00:15 Urine Blood Lg (Negative) 05/24/18 00:15 Urine Nitrite Neg (Negative) 05/24/18 00:15 Urine Bilirubin Neg (Negative) 05/24/18 00:15 Urine Urobilinogen < 2.0 mg/dL (<2.0) 05/24/18 00:15 Ur Leukocyte Esterase Lg (Negative) 05/24/18 00:15 Urine WBC (Auto) > 182.0 /HPF (0.0-6.0) H 05/24/18 00:15 Urine RBC (Auto) 81.0 /HPF (0.0-6.0) 05/24/18 00:15 U Epithel Cells (Auto) < 1.0 /HPF (0-13.0) 05/24/18 00:15 Urine WBC Clumps 3+ /HPF 05/24/18 00:15 Urine Creatinine 102.8 mg/dL (0.1-20.0) H 05/24/18 00:15 Urine Sodium 37 mmol/L 05/24/18 00:15
[2018-05-28] MEDS: NACL 0.45% 1000 ML 1,000 ML IV SCH (10:52)
[2018-05-28] MEDS: DepaKENE Liq FEEDTUBE SCH ×3 (10:53→22:48)
[2018-05-28] MEDS: THERAGRAN Tab PO SCH (10:53)
[2018-05-28] MEDS: HEPARIN SUB-Q SCH ×2 (10:53→22:51)
[2018-05-28] MEDS: ASPIRIN PO SCH (10:53)
[2018-05-28] MEDS: TYLENOL PO PRN ×2 (11:00→15:04)
--- NOTE | 2018-05-28 11:20 | Progress Note ---
Assessment and Plan 1. Acute kidney injury: Vasomotor ZAY in the setting of hypotension. Renal function is better. Monitor renal function. Avoid nephrotoxic agents. 2. FEN: Volume depletion, IV fluids. Metabolic acidosis. Monitor lytes. 3. Sepsis / hypotension: Staph aureus bacteremia. Followed by ID. 4. Hematuria: Resolved and evaluated by Urologist. 5. Rhabdomyolysis: CK level improving. 6. Acute encephalopathy. 7. HTN: Monitor BP. Subjective Date of service: 05/28/18 Principal diagnosis: t Interval history: Patient was seen and examined at the bedside. Objective - Vital Signs Vital signs: Vital Signs - 12hr 05/27/18 05/28/18 05/28/18 23:40 05:06 11:15 Temperature 98.2 F 98.4 F Pulse Rate 99 H 86 Respiratory 20 18 Rate Blood Pressure 129/82 161/90 Blood Pressure 189/107 [Left] O2 Sat by Pulse 98 97 Oximetry - General Appearance General appearance: well-developed, appears stated age, other (not in distress) EENT: ATNC Neck: supple Respiratory: Present: Clear to Ascultation Cardiology: regular, S1S2, no murmurs Gastrointestinal: normoactive bowel sounds, no tenderness, no distended Integumentary: no rash, warm and dry Neurologic: confused, disoriented Musculoskeletal: other (no edema) - Lab 05/28/18 05:49 05/28/18 05:49 Most recent lab results Calcium 8.5 mg/dL (8.4-10.2) 05/28/18 05:49 Phosphorus 3.10 mg/dL (2.5-4.5) 05/26/18 05:14 Magnesium 1.90 mg/dL (1.7-2.3) 05/26/18 05:14 Urine Creatinine 102.8 mg/dL (0.1-20.0) H 05/24/18 00:15 Urine Sodium 37 mmol/L 05/24/18 00:15 Medications & Allergies - Medications Allergies/Adverse Reactions: Allergies No Known Allergies Allergy (Verified 04/03/18 10:23) Home Medications: Home Medications Medication Instructions Recorded Confirmed Last Taken Type carBAMazepine [TEGretol] 400 mg PO Q8HR tablet 09/24/14 05/24/18 01/25/17 Rx Acetaminophen [Non-Aspirin Pain 500 mg PO Q4H PRN 01/26/17 05/24/18 01/26/17 History Relief] Carvedilol [Coreg] 6.25 mg PO BID tablet 01/29/17 05/24/18 Unknown Rx Divalproex [Sergei Santizo] 250 mg PO TID tablet 01/29/17 05/24/18 Unknown Rx Multivitamin Tab [Multiple Vitamin 1 each PO DAILY tablet 01/29/17 05/24/18 Unknown Rx TAB (Theragran)] Aspirin [Aspirin TAB] 325 mg PO QDAY #30 tablet 04/13/18 05/24/18 Unknown Rx AtorvaSTATin [Lipitor] 40 mg PO QHS #30 tablet 04/13/18 05/24/18 Unknown Rx Active Medications: Generic Name Dose Route Start Last Admin Trade Name Freq PRN Reason Stop Dose Admin Acetaminophen 650 mg 05/24/18 00:44 05/28/18 11:00 Tylenol PO 650 mg Q4H PRN Administration Fever >101 Aspirin 325 mg 05/24/18 10:00 05/28/18 10:53 Aspirin PO 325 mg QDAY GREGORIO Administration Carbamazepine 400 mg 05/24/18 22:00 05/28/18 06:56 Tegretol PO 400 mg Q8HR GREGORIO Administration Carvedilol 12.5 mg 05/27/18 22:00 05/28/18 10:53 Coreg PO 12.5 mg BID GREGORIO Administration Heparin Sodium (Porcine) 5,000 unit 05/24/18 12:45 05/28/18 10:53 Heparin SUB-Q 5,000 unit Q12HR GREGORIO Administration Sodium Chloride 1,000 mls @ 50 mls/hr 05/27/18 12:00 05/28/18 10:52 Nacl 0.45% 1000 Ml IV 50 mls/hr DIRECT GREGORIO Administration Vancomycin HCl 1 gm in 250 mls @ 166.667 mls/hr 05/27/18 16:00 05/28/18 06:57 Vancomycin/Ns 1 Gm/250 Ml IV 166.667 mls/hr Q12H GREGORIO Administration Multivitamins 1 each 05/24/18 08:00 05/28/18 10:53 Theragran Tab PO 1 each 0800 GREGORIO Administration Ondansetron HCl 4 mg 05/24/18 00:48 Zofran IV Q8H PRN Nausea And Vomiting Valproic Acid 250 mg 05/24/18 22:00 05/28/18 10:53 Depakene Liq FEEDTUBE 250 mg TID GREGORIO Administration
[2018-05-28] MEDS ORDERED: APRESOLINE IV PRN (11:22)
[2018-05-29] MEDS: VANCOMYCIN/NS 1 GM/250 ML 1 GM/250 ML BAG IV SCH ×2 (05:00→16:12)
[2018-05-29] MEDS: NACL 0.45% 1000 ML 1,000 ML IV SCH (05:44)
[2018-05-29] MEDS: THERAGRAN Tab PO SCH (07:36)
[2018-05-29] MEDS: DepaKENE Liq FEEDTUBE SCH ×3 (07:36→22:13)
--- NOTE | 2018-05-29 08:20 | Progress Note ---
Assessment and Plan Imaging: Right knee Xray images reviewed - no acute abnormality noted. Cultures: 05/23/2018 blood cultures: MRSA 05/25/2018 blood cultures: no growth thus far 05/25/2018 Urine: no growth A/P: 72-year-old male with dementia, urinary retention, indwelling Summers catheter, diabetes, CVA, admitted with: 1) Sepsis: Improved, possibly secondary to urinary tract infection and hematuria. Seen by urology. Urine cultures negative, discontinued Cefepime. 2) MRSA Bacteremia, source unknown, possibly urine, although MRSA is not a common UTI pathogen but can happen in patients with indwelling Summers and there was apparently some hematuria prior to admission. TTE shows no valvular vegetation. Plan for 4 weeks of IV Vancomycin 2) Acute encephalopathy: On background of severe dementia now appears to be at baseline. 3) ZAY: renally dose abx. Improving. 4) UTI - U/A with pyuria, Urine culture shows no growth. 5) Acute Right Knee pain: X-ray reviewed, no abnormality noted. Recs: Continue IV Vancomycin with PK based dosing, target trough: 10-20 mcg/ml PICC line ordered upon discharge, continue Vancomycin 1 gm in 250ml IV every 12 hours until 06-22-18 Order placed with Case management Susan prefer for him to get right hip surgery after full antibiotic course 06-22-18, however if surgery needed sooner for comfort measures, please perform 7 days after clearance 05-31-18. d/w Dr. Ada Carrasquillo, [employer] [facility] M: [id number] O:[phone] Subjective Date of service: 05/29/18 Principal diagnosis: t Interval history: Patient seen and examined. Awake, alert, no acute distress observed. No family at bedside. Objective - Exam Narrative Exam: Constitutional: Awake, alert No acute distress. Head, Ears, Nose: Normocephalic, atraumatic. External ears, nose normal Eyes: Conjunctivae/corneas clear. No icterus. No ptosis. Neck: Supple, no meningeal signs Oral: several missing teeth, no thrush Cardiovascular: S1, S2 normal. Respiratory: Good air entry, clear to auscultation bilaterally GI: bowel sounds + Summers catheter in place. Musculoskeletal: No pedal edema, no cyanosis. Skin: No rash or abscess Hem/Lymphatic: No palpable cervical or supraclavicular nodes. No lymphangitis Psych: no agitation Neurological: at baseline - Constitutional Vitals: Vital Signs Temp Pulse Resp BP Pulse Ox 98.1 F 87 18 133/77 99 05/29/18 07:13 05/29/18 07:13 05/29/18 07:13 05/29/18 07:13 05/29/18 07:13 Temperature -Last 24 Hours Temperature 98.1 F Temperature 98.6 F Temperature 98.5 F Temperature 97.5 F Temperature 97.9 F - Labs CBC & Chem 7: 05/28/18 05:49 05/28/18 05:49
[2018-05-29] MEDS: COREG PO SCH ×2 (09:11→22:13)
[2018-05-29] MEDS: HEPARIN SUB-Q SCH ×2 (09:12→22:07)
[2018-05-29] MEDS: ASPIRIN PO SCH (09:12)
--- NOTE | 2018-05-29 10:03 | Progress Note ---
Assessment and Plan 1. Acute kidney injury: Vasomotor ZAY in the setting of hypotension. Renal function is better. Monitor renal function. Avoid nephrotoxic agents. 2. FEN: Volume depletion, IV fluids. Metabolic acidosis. Monitor lytes. 3. Sepsis / hypotension: Staph aureus bacteremia. Followed by ID. 4. Hematuria: Resolved and evaluated by Urologist. 5. Rhabdomyolysis: CK level improving. 6. Acute encephalopathy. 7. HTN: Monitor BP. Subjective Date of service: 05/29/18 Principal diagnosis: t Interval history: Patient was seen and examined at the bedside. Objective - Vital Signs Vital signs: Vital Signs - 12hr 05/28/18 05/29/18 05/29/18 22:48 01:34 02:00 Temperature 98.6 F Pulse Rate 86 86 Respiratory 20 Rate Blood Pressure 144/81 146/98 O2 Sat by Pulse 100 Oximetry 05/29/18 05/29/18 07:13 09:11 Temperature 98.1 F Pulse Rate 87 87 Respiratory 18 Rate Blood Pressure 133/77 156/84 O2 Sat by Pulse 99 Oximetry - General Appearance General appearance: well-developed, appears stated age, other (not in distress) EENT: ATNC Neck: supple Respiratory: Present: Clear to Ascultation Cardiology: regular, S1S2, no murmurs Gastrointestinal: normoactive bowel sounds, no tenderness, no distended, other (Summers catheter) Integumentary: no rash, warm and dry Neurologic: confused, disoriented, other (conversing, ) Musculoskeletal: other (no edema) - Lab 05/28/18 05:49 05/28/18 05:49 Most recent lab results Calcium 8.5 mg/dL (8.4-10.2) 05/28/18 05:49 Phosphorus 3.10 mg/dL (2.5-4.5) 05/26/18 05:14 Magnesium 1.90 mg/dL (1.7-2.3) 05/26/18 05:14 Urine Creatinine 102.8 mg/dL (0.1-20.0) H 05/24/18 00:15 Urine Sodium 37 mmol/L 05/24/18 00:15 Medications & Allergies - Medications Allergies/Adverse Reactions: Allergies No Known Allergies Allergy (Verified 04/03/18 10:23) Home Medications: Home Medications Medication Instructions Recorded Confirmed Last Taken Type carBAMazepine [TEGretol] 400 mg PO Q8HR tablet 09/24/14 05/24/18 01/25/17 Rx Acetaminophen [Non-Aspirin Pain 500 mg PO Q4H PRN 01/26/17 05/24/18 01/26/17 History Relief] Carvedilol [Coreg] 6.25 mg PO BID tablet 01/29/17 05/24/[address] [Depakote Dr] 250 mg PO TID tablet 01/29/17 05/24/18 Unknown Rx Multivitamin Tab [Multiple Vitamin 1 each PO DAILY tablet 01/29/17 05/24/18 Unknown Rx TAB (Theragran)] Aspirin [Aspirin TAB] 325 mg PO QDAY #30 tablet 04/13/18 05/24/18 Unknown Rx AtorvaSTATin [Lipitor] 40 mg PO QHS #30 tablet 04/13/18 05/24/18 Unknown Rx Active Medications: Generic Name Dose Route Start Last Admin Trade Name Freq PRN Reason Stop Dose Admin Acetaminophen 650 mg 05/24/18 00:44 05/28/18 15:04 Tylenol PO 650 mg Q4H PRN Administration Fever >101 Aspirin 325 mg 05/24/18 10:00 05/29/18 09:12 Aspirin PO 325 mg QDAY GREGORIO Administration Carbamazepine 400 mg 05/24/18 22:00 05/29/18 06:35 Tegretol PO Not Given Q8HR GREGORIO Carvedilol 12.5 mg 05/27/18 22:00 05/29/18 09:11 Coreg PO 12.5 mg BID GREGORIO Administration Heparin Sodium (Porcine) 5,000 unit 05/24/18 12:45 05/29/18 09:12 Heparin SUB-Q 5,000 unit Q12HR GREGORIO Administration Hydralazine HCl 10 mg 05/28/18 11:22 05/28/18 12:06 Apresoline IV 10 mg Q4HR PRN Administration SBP>160 or DBP>110 Sodium Chloride 1,000 mls @ 50 mls/hr 05/27/18 12:00 05/29/18 05:44 Nacl 0.45% 1000 Ml IV 50 mls/hr DIRECT GREGORIO Administration Vancomycin HCl 1 gm in 250 mls @ 166.667 mls/hr 05/27/18 16:00 05/29/18 06:27 Vancomycin/Ns 1 Gm/250 Ml IV Infused Q12H GREGORIO Infusion Multivitamins 1 each 05/24/18 08:00 05/29/18 07:36 Theragran Tab PO 1 each 0800 GREGORIO Administration Ondansetron HCl 4 mg 05/24/18 00:48 Zofran IV Q8H PRN Nausea And Vomiting Valproic Acid 250 mg 05/24/18 22:00 05/29/18 07:36 Depakene Liq FEEDTUBE 250 mg TID GREGORIO Administration
--- NOTE | 2018-05-29 12:03 | Progress Note ---
Assessment and Plan Assessment and plan: MRSA Sepsis Vancomycin ID Physician following They recommend iv Vanco till 06/22/18 Bacteremia due to MRSA. Continue Vancomycin UTI ZAY. due to vasomotor nephropathy Resolved. Cr 0.8 Toxic metabolic encephalopathy. neurochecks Dementia Gross hematuria, now resolved patient evaluated by Dr. Paz CT Abd : no hydronephrosis Urinary retention keep solano in Patient evaluated by Dr. Paz Subacute right hip fracture Ortho consulted Discussed with Dr. Herrera. May need surg Discussed with ID and they recommend surg after 06/22/18 after he completes iv vanco Discussed with sister at bedside Full code History Interval history: Altered mental status, improved No more hematuria Hospitalist Physical - Physical exam Narrative exam: GEN: Not in acute distress, lying in bed HEENT: Normocephalic, atraumatic, Neck: supple, No JVD Lungs: Clear to auscultation bilaterally, no wheeze Heart:S1 and S2 regular, no murmurs, rubs or gallop, Abd:soft, non tender, non distended, normal bowel sounds Ext: No edema, no clubbing or cyanosis Neuro: Awake,less confused, moves all extremities, - Constitutional Vitals: Temp Pulse Resp BP Pulse Ox 98.1 F 87 18 156/84 99 05/29/18 07:13 05/29/18 09:11 05/29/18 07:13 05/29/18 09:11 05/29/18 07:13 Results - Labs CBC & Chem 7: 05/28/18 05:49 05/30/18 04:39 Labs: Laboratory Last Values WBC 8.9 K/mm3 (4.5-11.0) 05/28/18 05:49 RBC 4.14 M/mm3 (3.65-5.03) 05/28/18 05:49 Hgb 12.9 gm/dl (11.8-15.2) 05/28/18 05:49 Hct 37.6 % (35.5-45.6) 05/28/18 05:49 MCV 91 fl (84-94) 05/28/18 05:49 MCH 31 pg (28-32) 05/28/18 05:49 MCHC 34 % (32-34) 05/28/18 05:49 RDW 15.4 % (13.2-15.2) H 05/28/18 05:49 Plt Count 149 K/mm3 (140-440) 05/28/18 05:49 Lymph % (Auto) 6.4 % (13.4-35.0) L 05/25/18 05:17 [place] % (Auto) 11.6 % (0.0-7.3) H 05/25/18 05:17 Eos % (Auto) 0.0 % (0.0-4.3) 05/25/18 05:17 Baso % (Auto) 0.3 % (0.0-1.8) 05/25/18 05:17 Lymph # 0.8 K/mm3 (1.2-5.4) L 05/25/18 05:17 [place] # 1.4 K/mm3 (0.0-0.8) H 05/25/18 05:17 Eos # 0.0 K/mm3 (0.0-0.4) 05/25/18 05:17 Baso # 0.0 K/mm3 (0.0-0.1) 05/25/18 05:17 Seg Neutrophils % 81.7 % (40.0-70.0) H 05/25/18 05:17 Seg Neutrophils # 9.9 K/mm3 (1.8-7.7) H 05/25/18 05:17 Sodium 142 mmol/L (137-145) 05/28/18 05:49 Potassium 4.5 mmol/L (3.6-5.0) D 05/28/18 05:49 Chloride 112.0 mmol/L (98-107) H 05/28/18 05:49 Carbon Dioxide 19 mmol/L (22-30) L 05/28/18 05:49 Anion Gap 16 mmol/L 05/28/18 05:49 BUN 16 mg/dL (9-20) 05/28/18 05:49 Creatinine 0.8 mg/dL (0.8-1.5) 05/28/18 05:49 Estimated GFR > 60 ml/min 05/28/18 05:49 BUN/Creatinine Ratio 20 % 05/28/18 05:49 Glucose 103 mg/dL (75-100) H 05/28/18 05:49 POC Glucose 108 (70-105) H 05/29/18 11:25 Lactic Acid 1.80 mmol/L (0.7-2.0) 05/24/18 06:14 Calcium 8.5 mg/dL (8.4-10.2) 05/28/18 05:49 Phosphorus 3.10 mg/dL (2.5-4.5) 05/26/18 05:14 Magnesium 1.90 mg/dL (1.7-2.3) 05/26/18 05:14 Total Bilirubin 0.60 mg/dL (0.1-1.2) 05/23/18 22:03 AST 95 units/L (5-40) H 05/23/18 22:03 ALT 27 units/L (7-56) 05/23/18 22:03 Alkaline Phosphatase 97 units/L (35-129) 05/23/18 22:03 Total Creatine Kinase 645 units/L (55-170) H 05/28/18 05:49 Total Protein 6.9 g/dL (6.3-8.2) 05/23/18 22:03 Albumin 3.1 g/dL (3.9-5) L 05/23/18 22:03 Albumin/Globulin Ratio 0.8 % 05/23/18 22:03 Urine Color [place] (Yellow) 05/24/18 00:15 Urine Turbidity Cloudy (Clear) 05/24/18 00:15 Urine pH 5.0 (5.0-7.0) 05/24/18 00:15 Ur Specific [place] 1.015 (1.003-1.030) 05/24/18 00:15 Urine Protein 100 mg/dl mg/dL (Negative) 05/24/18 00:15 Urine Glucose (UA) Neg mg/dL (Negative) 05/24/18 00:15 Urine Ketones Neg mg/dL (Negative) 05/24/18 00:15 Urine Blood Lg (Negative) 05/24/18 00:15 Urine Nitrite Neg (Negative) 05/24/18 00:15 Urine Bilirubin Neg (Negative) 05/24/18 00:15 Urine Urobilinogen < 2.0 mg/dL (<2.0) 05/24/18 00:15 Ur Leukocyte Esterase Lg (Negative) 05/24/18 00:15 Urine WBC (Auto) > 182.0 /HPF (0.0-6.0) H 05/24/18 00:15 Urine RBC (Auto) 81.0 /HPF (0.0-6.0) 05/24/18 00:15 U Epithel Cells (Auto) < 1.0 /HPF (0-13.0) 05/24/18 00:15 Urine WBC Clumps 3+ /HPF 05/24/18 00:15 Urine Creatinine 102.8 mg/dL (0.1-20.0) H 05/24/18 00:15 Urine Sodium 37 mmol/L 05/24/18 00:15 Vancomycin Trough 18.6 ug/mL (5.0-20.0) 05/29/18 03:07
[2018-05-29] MEDS: TYLENOL PO PRN (14:15)
--- NOTE | 2018-05-29 15:56 | XRay Report ---
FINAL REPORT EXAM: XR CHEST 1V AP HISTORY: R arm PICC placement TECHNIQUE: Frontal chest x-ray. PRIORS: Chest x-ray May 23, 2018. FINDINGS: Left costophrenic angles not imaged. Cardiac silhouette is within normal limits. Aortic calcifications. There is no effusion. There is no pneumothorax. There is no consolidation. There are no suspicious osseous lesions. Right PICC line tip is in the SVC. IMPRESSION: Left costophrenic angle is not imaged. Otherwise, no acute cardiopulmonary findings.
--- NOTE | 2018-05-29 17:15 | Consultation ---
History of Present Illness - [facility] Consult date: 05/29/18 Consult reason: joint pain, fracture History of present illness: 72-year-old male with a history of dementia currently complaining of right hip and knee pain. Past medical history significant for a recent fall back in March 2018 patient was admitted at that time and according to his sister patient had complaints of right hip pain x-rays taken revealed a displaced right femoral neck fracture. Also the sister relates that he had a fracture of the pelvis active 2 years ago which was treated conservatively. Past History Past Medical History: diabetes, hyperlipidemia, other (dementia) Medications and Allergies Allergies Allergy/AdvReac Type Severity Reaction Status Date / Time No Known Allergies Allergy Verified 04/03/18 10:23 Home Medications Medication Instructions Recorded Confirmed Last Taken Type carBAMazepine [TEGretol] 400 mg PO Q8HR tablet 09/24/14 05/24/18 01/25/17 Rx Acetaminophen [Non-Aspirin Pain 500 mg PO Q4H PRN 01/26/17 05/24/18 01/26/17 History Relief] Carvedilol [Coreg] 6.25 mg PO BID tablet 01/29/17 05/24/18 Unknown Rx Divalproex [Sergei Santizo] 250 mg PO TID tablet 01/29/17 05/24/18 Unknown Rx Multivitamin Tab [Multiple Vitamin 1 each PO DAILY tablet 01/29/17 05/24/18 Unknown Rx TAB (Theragran)] Aspirin [Aspirin TAB] 325 mg PO QDAY #30 tablet 04/13/18 05/24/18 Unknown Rx AtorvaSTATin [Lipitor] 40 mg PO QHS #30 tablet 04/13/18 05/24/18 Unknown Rx Active Meds: Active Medications Acetaminophen (Tylenol) 650 mg PO Q4H PRN PRN Reason: Fever >101 Last Admin: 05/29/18 14:15 Dose: 650 mg Documented by: Aspirin (Aspirin) 325 mg PO QDAY [facility] Last Admin: 05/29/18 09:12 Dose: 325 mg Documented by: Carbamazepine (Tegretol) 400 mg PO Q8HR [facility] Last Admin: 05/29/18 13:21 Dose: 400 mg Documented by: Carvedilol (Coreg) 12.5 mg PO BID [facility] Last Admin: 05/29/18 09:11 Dose: 12.5 mg Documented by: Heparin Sodium (Porcine) (Heparin) 5,000 unit SUB-Q Q12HR [facility] Last Admin: 05/29/18 09:12 Dose: 5,000 unit Documented by: Hydralazine HCl (Apresoline) 10 mg IV Q4HR PRN PRN Reason: SBP>160 or DBP>110 Last Admin: 05/28/18 12:06 Dose: 10 mg Documented by: Sodium Chloride (Nacl 0.45% 1000 Ml) 1,000 mls @ 50 mls/hr IV DIRECT [facility] Last Admin: 05/29/18 05:44 Dose: 50 mls/hr Documented by: Vancomycin HCl (Vancomycin/Ns 1 Gm/250 Ml) 1 gm in 250 mls @ 166.667 mls/hr IV Q12H [facility] Last Admin: 05/29/18 16:12 Dose: 166.667 mls/hr Documented by: Multivitamins (Theragran Tab) 1 each PO 0800 [facility] Last Admin: 05/29/18 07:36 Dose: 1 each Documented by: Ondansetron HCl (Zofran) 4 mg IV Q8H PRN PRN Reason: Nausea And Vomiting Valproic Acid (Depakene Liq) 250 mg FEEDTUBE TID [facility] Last Admin: 05/29/18 13:20 Dose: 250 mg Documented by:
[2018-05-30] MEDS: VANCOMYCIN/NS 1 GM/250 ML 1 GM/250 ML BAG IV SCH ×2 (04:20→16:17)
[2018-05-30 06:02] LABS: BUN/Creatinine Ratio 16; Blood Urea Nitrogen 11 mg/dL (9-20); Hemolysis Index 4
[2018-05-30] MEDS ORDERED: K-DUR PO ONE (06:29)
[2018-05-30] MEDS: DepaKENE Liq FEEDTUBE SCH ×3 (07:04→21:44)
[2018-05-30] MEDS: THERAGRAN Tab PO SCH (07:04)
--- NOTE | 2018-05-30 08:11 | Progress Note ---
Assessment and Plan Imaging: Right knee Xray images reviewed - no acute abnormality noted. Cultures: 05/23/2018 blood cultures: MRSA 05/25/2018 blood cultures: no growth thus far 05/25/2018 Urine: no growth A/P: 72-year-old male with dementia, urinary retention, indwelling Summers catheter, diabetes, CVA, admitted with: 1) Sepsis: Resolved possibly secondary to urinary tract infection and hematuria. Seen by urology. Urine cultures negative, discontinued Cefepime. 2) MRSA Bacteremia, source unknown, possibly urine, although MRSA is not a common UTI pathogen but can happen in patients with indwelling Summers and there was apparently some hematuria prior to admission. TTE shows no valvular vegetation. Plan for 4 weeks of IV Vancomycin 2) Acute encephalopathy: On background of severe dementia now appears to be at baseline. 3) ZAY: renally dose abx. Improving. 4) UTI - U/A with pyuria, Urine culture shows no growth. 5) Acute Right Knee pain: X-ray reviewed, no abnormality noted. Recs: Continue IV Vancomycin with PK based dosing, target trough: 10-20 mcg/ml upon discharge, continue Vancomycin 1 gm in 250ml IV every 12 hours until 06-22-18 Order placed with Case management If any new hardware needs to be placed, would wait at least 7 days from bacteremia clearance and continued IV vancomycin. [facility] M: [phone] O:[phone] Subjective Date of service: 05/30/18 Principal diagnosis: t Interval history: Patient seen and examined. Awake, alert. Continues to complain of right leg pain. No family at bedside. Nurse notes, labs and reports reviewed. Objective - Exam Narrative Exam: Constitutional: Awake, alert Mild distress observed, complains of right leg pain. Head, Ears, Nose: Normocephalic, atraumatic. External ears, nose normal Eyes: Conjunctivae/corneas clear. No icterus. No ptosis. Neck: Supple, no meningeal signs Oral: several missing teeth, no thrush Cardiovascular: S1, S2 normal. Respiratory: Good air entry, clear to auscultation bilaterally GI: bowel sounds + Summers catheter in place. Musculoskeletal: No pedal edema, no cyanosis. Skin: No rash or abscess Hem/Lymphatic: No palpable cervical or supraclavicular nodes. No lymphangitis Psych: no agitation Neurological: at baseline - Constitutional Vitals: Vital Signs Temp Pulse Resp BP Pulse Ox 98.0 F 87 18 138/79 96 05/30/18 07:51 05/30/18 07:51 05/30/18 07:51 05/30/18 07:51 05/30/18 07:51 Temperature -Last 24 Hours Temperature 98.0 F Temperature 99.1 F Temperature 98.6 F Temperature 97.7 F - Labs CBC & Chem 7: 05/30/18 08:29 05/30/18 04:39 Labs: Abnormal lab results 05/29/18 05/29/18 05/30/18 Range/Units 11:25 16:24 04:39 Potassium 2.9 L* D (3.6-5.0) mmol/L Carbon Dioxide 21 L (22-30) mmol/L Creatinine 0.7 L (0.8-1.5) mg/dL POC Glucose 108 H 111 H (70-105) Calcium 8.0 L (8.4-10.2) mg/dL Total Creatine Kinase 270 H (55-170) units/L 05/30/18 Range/Units 07:13 Potassium (3.6-5.0) mmol/L Carbon Dioxide (22-30) mmol/L Creatinine (0.8-1.5) mg/dL POC Glucose 117 H (70-105) Calcium (8.4-10.2) mg/dL Total Creatine Kinase (55-170) units/L
[2018-05-30] MEDS: HEPARIN SUB-Q SCH ×2 (09:04→21:45)
[2018-05-30] MEDS: ASPIRIN PO SCH (09:05)
[2018-05-30] MEDS: COREG PO SCH ×2 (09:05→21:43)
[2018-05-30 09:08] LABS: Hematocrit 33.7 % (35.5-45.6); Hemoglobin 11.4 gm/dl (11.8-15.2); Mean Corpuscular HGB Conc 34 % (32-34); Mean Corpuscular Volume 91 fl (84-94); Platelet Count 158 K/mm3 (140-440); Red Blood Count 3.71 M/mm3 (3.65-5.03); Red Cell Distribution Width 15.2 % (13.2-15.2)
--- NOTE | 2018-05-30 09:21 | Progress Note ---
Assessment and Plan 1. Acute kidney injury: Vasomotor ZAY in the setting of hypotension. Renal function is better. Monitor renal function. Avoid nephrotoxic agents. 2. FEN: Volume depletion, IV fluids. Metabolic acidosis. Replete K. Monitor lytes. 3. Sepsis / hypotension: Staph aureus bacteremia. Followed by ID. 4. Hematuria: Resolved and evaluated by Urologist. 5. Rhabdomyolysis: CK level improving. 6. Acute encephalopathy. 7. HTN: Monitor BP. Subjective Date of service: 05/30/18 Principal diagnosis: t Interval history: Patient was seen and examined at the bedside. Objective - Vital Signs Vital signs: Vital Signs - 12hr 05/29/18 05/30/18 05/30/18 22:13 02:41 07:51 Temperature 99.1 F 98.0 F Pulse Rate 78 82 87 Respiratory 20 18 Rate Blood Pressure 157/77 154/89 138/79 O2 Sat by Pulse 96 96 Oximetry 05/30/18 09:05 Temperature Pulse Rate 84 Respiratory Rate Blood Pressure 119/64 O2 Sat by Pulse Oximetry - General Appearance General appearance: well-developed, appears stated age, other (not in distress) EENT: ATNC Neck: supple Respiratory: Present: Clear to Ascultation Cardiology: regular, S1S2, no murmurs Gastrointestinal: normoactive bowel sounds, other (Summers catheter) Integumentary: no rash, warm and dry Neurologic: confused, disoriented, other (able to move extremities) Musculoskeletal: other (no edema) - Lab 05/30/18 08:29 05/30/18 04:39 Most recent lab results Calcium 8.0 mg/dL (8.4-10.2) L 05/30/18 04:39 Phosphorus 3.10 mg/dL (2.5-4.5) 05/26/18 05:14 Magnesium 1.90 mg/dL (1.7-2.3) 05/26/18 05:14 Urine Creatinine 102.8 mg/dL (0.1-20.0) H 05/24/18 00:15 Urine Sodium 37 mmol/L 05/24/18 00:15 Medications & Allergies - Medications Allergies/Adverse Reactions: Allergies No Known Allergies Allergy (Verified 04/03/18 10:23) Home Medications: Home Medications Medication Instructions Recorded Confirmed Last Taken Type carBAMazepine [TEGretol] 400 mg PO Q8HR tablet 09/24/14 05/24/18 01/25/17 Rx Acetaminophen [Non-Aspirin Pain 500 mg PO Q4H PRN 01/26/17 05/24/18 01/26/17 History Relief] Carvedilol [Coreg] 6.25 mg PO BID tablet 01/29/17 05/24/[address] [Depakote Dr] 250 mg PO TID tablet 01/29/17 05/24/18 Unknown Rx Multivitamin Tab [Multiple Vitamin 1 each PO DAILY tablet 01/29/17 05/24/18 Unknown Rx TAB (Theragran)] Aspirin [Aspirin TAB] 325 mg PO QDAY #30 tablet 04/13/18 05/24/18 Unknown Rx AtorvaSTATin [Lipitor] 40 mg PO QHS #30 tablet 04/13/18 05/24/18 Unknown Rx Active Medications: Generic Name Dose Route Start Last Admin Trade Name Freq PRN Reason Stop Dose Admin Acetaminophen 650 mg 05/24/18 00:44 05/29/18 14:15 Tylenol PO 650 mg Q4H PRN Administration Fever >101 Aspirin 325 mg 05/24/18 10:00 05/30/18 09:05 Aspirin PO 325 mg QDAY GREGORIO Administration Carbamazepine 400 mg 05/24/18 22:00 05/30/18 05:57 Tegretol PO 400 mg Q8HR GREGORIO Administration Carvedilol 12.5 mg 05/27/18 22:00 05/30/18 09:05 Coreg PO 12.5 mg BID GREGORIO Administration Heparin Sodium (Porcine) 5,000 unit 05/24/18 12:45 05/30/18 09:04 Heparin SUB-Q 5,000 unit Q12HR GREGORIO Administration Hydralazine HCl 10 mg 05/28/18 11:22 05/28/18 12:06 Apresoline IV 10 mg Q4HR PRN Administration SBP>160 or DBP>110 Sodium Chloride 1,000 mls @ 50 mls/hr 05/27/18 12:00 05/29/18 05:44 Nacl 0.45% 1000 Ml IV 50 mls/hr DIRECT GREGORIO Administration Vancomycin HCl 1 gm in 250 mls @ 166.667 mls/hr 05/27/18 16:00 05/30/18 04:20 Vancomycin/Ns 1 Gm/250 Ml IV 06/22/18 17:29 166.667 mls/hr Q12H GREGORIO Administration Multivitamins 1 each 05/24/18 08:00 05/30/18 07:04 Theragran Tab PO 1 each 0800 GREGORIO Administration Ondansetron HCl 4 mg 05/24/18 00:48 Zofran IV Q8H PRN Nausea And Vomiting Valproic Acid 250 mg 05/24/18 22:00 05/30/18 07:04 Depakene Liq FEEDTUBE 250 mg TID GREGORIO Administration
[2018-05-30] MEDS: NACL 0.45% 1000 ML 1,000 ML IV SCH (09:34)
[2018-05-30] MEDS: KCL 10MEQ/100ML 10 MEQ/100 ML BAG IV SCH ×4 (10:22→13:49)
--- NOTE | 2018-05-30 10:36 | Progress Note ---
Assessment and Plan Assessment and plan: MRSA Sepsis Continue Vancomycin total 4 weeks ID Physician following They recommend iv Vanco till 06/22/18 Bacteremia due to MRSA. Continue Vancomycin Hyperkalemia. Repeat potassium. UTI ZAY. Etiology secondary to vasomotor nephropathy Resolved. Cr 0.8 Toxic metabolic encephalopathy. neurochecks Dementia Gross hematuria, now resolved patient evaluated by Dr. Paz CT Abd : no hydronephrosis Urinary retention keep [place] in Patient evaluated by Dr. Paz Subacute right hip fracture Ortho consulted Discussed with Dr. Herrera. May need surg Discussed with ID and they recommend surg after 06/22/18 after he completes iv vanco Discussed with sister at bedside Full code History Interval history: No new issues overnight. Hospitalist Physical - Constitutional Vitals: Temp Pulse Resp BP Pulse Ox 98.0 F 84 18 119/64 96 05/30/18 07:51 05/30/18 09:44 05/30/18 07:51 05/30/18 09:05 05/30/18 09:44 General appearance: Present: mild distress - EENT Eyes: Present: PERRL, EOM intact ENT: hearing intact, clear oral mucosa, dentition normal - Neck Neck: Present: supple, normal ROM - Respiratory Respiratory effort: normal Respiratory: bilateral: CTA - Cardiovascular Rhythm: regular Heart Sounds: Present: S1 & S2. Absent: gallop, rub - Extremities Extremities: no ischemia, No edema, Full ROM - Abdominal General gastrointestinal: soft, non-tender, non-distended, normal bowel sounds - Integumentary Integumentary: Present: clear, warm, dry - Neurologic Neurologic: CNII-XII intact, moves all extremities Results - Labs CBC & Chem 7: 05/30/18 08:29 05/30/18 04:39 Labs: Laboratory Last Values WBC 5.8 K/mm3 (4.5-11.0) 05/30/18 08:29 RBC 3.71 M/mm3 (3.65-5.03) 05/30/18 08:29 Hgb 11.4 gm/dl (11.8-15.2) L 05/30/18 08:29 Hct 33.7 % (35.5-45.6) L 05/30/18 08:29 MCV 91 fl (84-94) 05/30/18 08:29 MCH 31 pg (28-32) 05/30/18 08:29 MCHC 34 % (32-34) 05/30/18 08:29 RDW 15.2 % (13.2-15.2) 05/30/18 08:29 Plt Count 158 K/mm3 (140-440) 05/30/18 08:29 Lymph % (Auto) 6.4 % (13.4-35.0) L 05/25/18 05:17 [place] % (Auto) 11.6 % (0.0-7.3) H 05/25/18 05:17 Eos % (Auto) 0.0 % (0.0-4.3) 05/25/18 05:17 Baso % (Auto) 0.3 % (0.0-1.8) 05/25/18 05:17 Lymph # 0.8 K/mm3 (1.2-5.4) L 05/25/18 05:17 [place] # 1.4 K/mm3 (0.0-0.8) H 05/25/18 05:17 Eos # 0.0 K/mm3 (0.0-0.4) 05/25/18 05:17 Baso # 0.0 K/mm3 (0.0-0.1) 05/25/18 05:17 Seg Neutrophils % 81.7 % (40.0-70.0) H 05/25/18 05:17 Seg Neutrophils # 9.9 K/mm3 (1.8-7.7) H 05/25/18 05:17 Sodium 140 mmol/L (137-145) 05/30/18 04:39 Potassium 2.9 mmol/L (3.6-5.0) L* D 05/30/18 04:39 Chloride 107.0 mmol/L (98-107) 05/30/18 04:39 Carbon Dioxide 21 mmol/L (22-30) L 05/30/18 04:39 Anion Gap 15 mmol/L 05/30/18 04:39 BUN 11 mg/dL (9-20) 05/30/18 04:39 Creatinine 0.7 mg/dL (0.8-1.5) L 05/30/18 04:39 Estimated GFR > 60 ml/min 05/30/18 04:39 BUN/Creatinine Ratio 16 % 05/30/18 04:39 Glucose 94 mg/dL (75-100) 05/30/18 04:39 POC Glucose 117 (70-105) H 05/30/18 07:13 Lactic Acid 1.80 mmol/L (0.7-2.0) 05/24/18 06:14 Calcium 8.0 mg/dL (8.4-10.2) L 05/30/18 04:39 Phosphorus 3.10 mg/dL (2.5-4.5) 05/26/18 05:14 Magnesium 1.90 mg/dL (1.7-2.3) 05/26/18 05:14 Total Bilirubin 0.60 mg/dL (0.1-1.2) 05/23/18 22:03 AST 95 units/L (5-40) H 05/23/18 22:03 ALT 27 units/L (7-56) 05/23/18 22:03 Alkaline Phosphatase 97 units/L (35-129) 05/23/18 22:03 Total Creatine Kinase 270 units/L (55-170) H 05/30/18 04:39 Total Protein 6.9 g/dL (6.3-8.2) 05/23/18 22:03 Albumin 3.1 g/dL (3.9-5) L 05/23/18 22:03 Albumin/Globulin Ratio 0.8 % 05/23/18 22:03 Urine Color [place] (Yellow) 05/24/18 00:15 Urine Turbidity Cloudy (Clear) 05/24/18 00:15 Urine pH 5.0 (5.0-7.0) 05/24/18 00:15 Ur Specific [place] 1.015 (1.003-1.030) 05/24/18 00:15 Urine Protein 100 mg/dl mg/dL (Negative) 05/24/18 00:15 Urine Glucose (UA) Neg mg/dL (Negative) 05/24/18 00:15 Urine Ketones Neg mg/dL (Negative) 05/24/18 00:15 Urine Blood Lg (Negative) 05/24/18 00:15 Urine Nitrite Neg (Negative) 05/24/18 00:15 Urine Bilirubin Neg (Negative) 05/24/18 00:15 Urine Urobilinogen < 2.0 mg/dL (<2.0) 05/24/18 00:15 Ur Leukocyte Esterase Lg (Negative) 05/24/18 00:15 Urine WBC (Auto) > 182.0 /HPF (0.0-6.0) H 05/24/18 00:15 Urine RBC (Auto) 81.0 /HPF (0.0-6.0) 05/24/18 00:15 U Epithel Cells (Auto) < 1.0 /HPF (0-13.0) 05/24/18 00:15 Urine WBC Clumps 3+ /HPF 05/24/18 00:15 Urine Creatinine 102.8 mg/dL (0.1-20.0) H 05/24/18 00:15 Urine Sodium 37 mmol/L 05/24/18 00:15 Vancomycin Trough 18.6 ug/mL (5.0-20.0) 05/29/18 03:07
[2018-05-31] MEDS: VANCOMYCIN/NS 1 GM/250 ML 1 GM/250 ML BAG IV SCH ×2 (03:32→15:02)
[2018-05-31 05:37] LABS: BUN/Creatinine Ratio 13; Blood Urea Nitrogen 10 mg/dL (9-20); Calcium 7.8 mg/dL (8.4-10.2); Hemolysis Index 8
[2018-05-31] MEDS: NACL 0.45% 1000 ML 1,000 ML IV SCH (06:49)
[2018-05-31] MEDS: THERAGRAN Tab PO SCH (07:10)
[2018-05-31] MEDS: DepaKENE Liq FEEDTUBE SCH ×3 (07:10→21:43)
[2018-05-31] MEDS: COREG PO SCH ×2 (09:28→21:43)
[2018-05-31] MEDS: ASPIRIN PO SCH (09:28)
[2018-05-31] MEDS: HEPARIN SUB-Q SCH ×2 (09:31→21:44)
--- NOTE | 2018-05-31 09:36 | Progress Note ---
Assessment and Plan Assessment and plan: MRSA Sepsis Continue Vancomycin total 4 weeks (06/22/18) ID Physician following Bacteremia due to MRSA. Continue Vancomycin Hyperkalemia. Replete potassium. Check BMP UTI ZAY. Etiology secondary to vasomotor nephropathy Resolved. Toxic metabolic encephalopathy. neurochecks Dementia Gross hematuria, now resolved patient evaluated by Dr. Paz CT Abd : no hydronephrosis Urinary retention keep solano in Patient evaluated by Dr. Paz Subacute right hip fracture May need surg Discussed with ID and they recommend surg after 06/22/18 after he completes iv vanco Full code History Interval history: No new issues overnight. Hospitalist Physical - Constitutional Vitals: Temp Pulse Resp BP Pulse Ox 98.7 F 93 H 20 126/67 98 05/31/18 07:14 05/31/18 09:28 05/31/18 07:14 05/31/18 09:28 05/31/18 07:14 General appearance: Present: no acute distress - EENT Eyes: Present: PERRL, EOM intact ENT: hearing intact, clear oral mucosa, dentition normal - Neck Neck: Present: supple, normal ROM - Respiratory Respiratory effort: normal Respiratory: bilateral: CTA - Cardiovascular Rhythm: regular Heart Sounds: Present: S1 & S2. Absent: gallop, rub - Extremities Extremities: no ischemia, No edema, Full ROM - Abdominal General gastrointestinal: soft, non-tender, non-distended, normal bowel sounds - Integumentary Integumentary: Present: clear, warm, dry - Neurologic Neurologic: CNII-XII intact, moves all extremities Results - Labs CBC & Chem 7: 05/30/18 08:29 05/31/18 05:10 Labs: Laboratory Last Values WBC 5.8 K/mm3 (4.5-11.0) 05/30/18 08:29 RBC 3.71 M/mm3 (3.65-5.03) 05/30/18 08:29 Hgb 11.4 gm/dl (11.8-15.2) L 05/30/18 08:29 Hct 33.7 % (35.5-45.6) L 05/30/18 08:29 MCV 91 fl (84-94) 05/30/18 08:29 MCH 31 pg (28-32) 05/30/18 08:29 MCHC 34 % (32-34) 05/30/18 08:29 RDW 15.2 % (13.2-15.2) 05/30/18 08:29 Plt Count 158 K/mm3 (140-440) 05/30/18 08:29 Lymph % (Auto) 6.4 % (13.4-35.0) L 05/25/18 05:17 [place] % (Auto) 11.6 % (0.0-7.3) H 05/25/18 05:17 Eos % (Auto) 0.0 % (0.0-4.3) 05/25/18 05:17 Baso % (Auto) 0.3 % (0.0-1.8) 05/25/18 05:17 Lymph # 0.8 K/mm3 (1.2-5.4) L 05/25/18 05:17 [place] # 1.4 K/mm3 (0.0-0.8) H 05/25/18 05:17 Eos # 0.0 K/mm3 (0.0-0.4) 05/25/18 05:17 Baso # 0.0 K/mm3 (0.0-0.1) 05/25/18 05:17 Seg Neutrophils % 81.7 % (40.0-70.0) H 05/25/18 05:17 Seg Neutrophils # 9.9 K/mm3 (1.8-7.7) H 05/25/18 05:17 Sodium 139 mmol/L (137-145) 05/31/18 05:10 Potassium 3.2 mmol/L (3.6-5.0) L 05/31/18 05:10 Chloride 108.3 mmol/L (98-107) H 05/31/18 05:10 Carbon Dioxide 21 mmol/L (22-30) L 05/31/18 05:10 Anion Gap 13 mmol/L 05/31/18 05:10 BUN 10 mg/dL (9-20) 05/31/18 05:10 Creatinine 0.8 mg/dL (0.8-1.5) 05/31/18 05:10 Estimated GFR > 60 ml/min 05/31/18 05:10 BUN/Creatinine Ratio 13 % 05/31/18 05:10 Glucose 109 mg/dL (75-100) H 05/31/18 05:10 POC Glucose 110 (70-105) H 05/31/18 07:15 Lactic Acid 1.80 mmol/L (0.7-2.0) 05/24/18 06:14 Calcium 7.8 mg/dL (8.4-10.2) L 05/31/18 05:10 Phosphorus 3.10 mg/dL (2.5-4.5) 05/26/18 05:14 Magnesium 1.50 mg/dL (1.7-2.3) L 05/31/18 05:10 Total Bilirubin 0.60 mg/dL (0.1-1.2) 05/23/18 22:03 AST 95 units/L (5-40) H 05/23/18 22:03 ALT 27 units/L (7-56) 05/23/18 22:03 Alkaline Phosphatase 97 units/L (35-129) 05/23/18 22:03 Total Creatine Kinase 270 units/L (55-170) H 05/30/18 04:39 Total Protein 6.9 g/dL (6.3-8.2) 05/23/18 22:03 Albumin 3.1 g/dL (3.9-5) L 05/23/18 22:03 Albumin/Globulin Ratio 0.8 % 05/23/18 22:03 Urine Color [place] (Yellow) 05/24/18 00:15 Urine Turbidity Cloudy (Clear) 05/24/18 00:15 Urine pH 5.0 (5.0-7.0) 05/24/18 00:15 Ur Specific [place] 1.015 (1.003-1.030) 05/24/18 00:15 Urine Protein 100 mg/dl mg/dL (Negative) 05/24/18 00:15 Urine Glucose (UA) Neg mg/dL (Negative) 05/24/18 00:15 Urine Ketones Neg mg/dL (Negative) 05/24/18 00:15 Urine Blood Lg (Negative) 05/24/18 00:15 Urine Nitrite Neg (Negative) 05/24/18 00:15 Urine Bilirubin Neg (Negative) 05/24/18 00:15 Urine Urobilinogen < 2.0 mg/dL (<2.0) 05/24/18 00:15 Ur Leukocyte Esterase Lg (Negative) 05/24/18 00:15 Urine WBC (Auto) > 182.0 /HPF (0.0-6.0) H 05/24/18 00:15 Urine RBC (Auto) 81.0 /HPF (0.0-6.0) 05/24/18 00:15 U Epithel Cells (Auto) < 1.0 /HPF (0-13.0) 05/24/18 00:15 Urine WBC Clumps 3+ /HPF 05/24/18 00:15 Urine Creatinine 102.8 mg/dL (0.1-20.0) H 05/24/18 00:15 Urine Sodium 37 mmol/L 05/24/18 00:15 Vancomycin Trough 18.6 ug/mL (5.0-20.0) 05/29/18 03:07 Nutrition/Malnutrition Assess - Dietary Evaluation Nutrition/Malnutrition Findings: Nutrition Notes Start: 05/30/18 13:5 3 Freq: Status: Active Protocol: Document 05/30/18 13:53 ER (Rec: 05/30/18 13:57 ER [id number]) Co-Sign 05/30/18 13:53 LP Nutrition Notes Need for Assessment generated from: Low BMI Initial or Follow up Brief Note Current Diagnosis Acute Kidney Injury Other Pertinent Diagnosis AMS, Sepsis Current Diet Mechanical Soft Subjective/Other Information Pt. screened for low BMI. Pt. sleeping at time of visit and investigative writer was unable to wake pt. up. RD will continue to follow for assessment. Nutrition Intervention Follow-Up By: 05/31/18 Additional Comments F/U: Low BMI assessment
[2018-05-31] MEDS: K-DUR PO SCH ×2 (09:40→15:02)
[2018-05-31] MEDS ORDERED: MAGNESIUM SULFATE 2GM/50ML 2 GM/50 ML BAG IV ONE (10:00)
[2018-05-31 11:50] LABS: BUN/Creatinine Ratio 11; Blood Urea Nitrogen 10 mg/dL (9-20); Calcium 7.9 mg/dL (8.4-10.2); Hemolysis Index 8
--- NOTE | 2018-05-31 12:06 | Progress Note ---
Assessment and Plan Cultures: 05/23/2018 blood cultures: MRSA 05/25/2018 blood cultures: no growth thus far 05/25/2018 Urine: no growth A/P: 72-year-old male with dementia, urinary retention, indwelling Summers catheter, diabetes, CVA, admitted with: 1) Sepsis: Resolved possibly secondary to urinary tract infection and hematuria. Seen by urology. Urine cultures negative, discontinued Cefepime. 2) MRSA Bacteremia, source unknown, possibly urine, although MRSA is not a common UTI pathogen but can happen in patients with indwelling Summers and there was apparently some hematuria prior to admission. TTE shows no valvular vegetation. Plan for 4 weeks of IV Vancomycin 2) Acute encephalopathy: On background of severe dementia now appears to be at baseline. 3) ZAY: renally dose abx. Improving. 4) UTI - U/A with pyuria, Urine culture shows no growth. 5) Subacute R hip fracture: orthopedics following, may need surgery. Recs: Continue IV Vancomycin with PK based dosing, target trough: 10-20 mcg/ml upon discharge, continue Vancomycin 1 gm in 250ml IV every 12 hours until 06-22-18 Order placed with Case management If any new hardware needs to be placed, would wait at least 7 days from bacteremia clearance and continued IV vancomycin. If patient could wait longer, ideal recommendation would be after completion of IV abx Shelton Caballero MD [facility] C: [phone] O: [phone] F: [phone] Subjective Date of service: 05/31/18 Principal diagnosis: t Interval history: No fever. Sitting up in bed, feeling well. Family member at bedside. Eating well. No distress. Got PICC line. Objective - Exam Narrative Exam: Physical Exam: Constitutional: Alert. No acute distress Head, Ears, Nose: Normocephalic, atraumatic. External ears, nose normal Eyes: Conjunctivae/corneas clear. No icterus. No ptosis. Neck: Supple, no meningeal signs Oral: several missing teeth, no thrush Cardiovascular: S1, S2 normal. Respiratory: Good air entry, clear to auscultation bilaterally GI: bowel sounds +. Summers catheter in place. Musculoskeletal: No pedal edema, no cyanosis. PICC line + Skin: No rash or abscess Hem/Lymphatic: No palpable cervical or supraclavicular nodes. No lymphangitis Psych: no agitation Neurological: Awake, alert, able to follow basic commands but not oriented. - Constitutional Vitals: Vital Signs Temp Pulse Resp BP Pulse Ox 98.7 F 93 H 20 126/67 98 05/31/18 07:14 05/31/18 09:48 05/31/18 07:14 05/31/18 09:28 05/31/18 09:48 Temperature -Last 24 Hours Temperature 98.7 F Temperature 98.6 F Temperature 98.6 F Temperature 98.4 F - Labs CBC & Chem 7: 05/30/18 08:29 05/31/18 11:09 Labs: Abnormal lab results 05/30/18 05/31/18 05/31/18 Range/Units 22:54 05:10 07:15 Potassium 3.2 L (3.6-5.0) mmol/L Chloride 108.3 H (98-107) mmol/L Carbon Dioxide 21 L (22-30) mmol/L Glucose 109 H (75-100) mg/dL POC Glucose 119 H 110 H (70-105) Calcium 7.8 L (8.4-10.2) mg/dL Magnesium 1.50 L (1.7-2.3) mg/dL 05/31/18 05/31/18 Range/Units 11:09 11:37 Potassium (3.6-5.0) mmol/L Chloride 107.3 H (98-107) mmol/L Carbon Dioxide (22-30) mmol/L Glucose 108 H (75-100) mg/dL POC Glucose 118 H (70-105) Calcium 7.9 L (8.4-10.2) mg/dL Magnesium (1.7-2.3) mg/dL
--- NOTE | 2018-05-31 14:12 | Progress Note ---
Assessment and Plan 1. Acute kidney injury: Vasomotor ZAY in the setting of hypotension. Renal function is better. Monitor renal function. Avoid nephrotoxic agents. 2. FEN: Volume depletion, IV fluids. Metabolic acidosis, improving. Monitor lytes. 3. Sepsis / hypotension: Staph aureus bacteremia. Followed by ID. 4. Hematuria: Resolved and evaluated by Urologist. 5. Rhabdomyolysis: CK level improved. 6. Acute encephalopathy. 7. HTN: Monitor BP. Subjective Date of service: 05/31/18 Principal diagnosis: t Interval history: Patient was seen and examined at the bedside. Objective - Vital Signs Vital signs: Vital Signs - 12hr 05/31/18 05/31/18 05/31/18 03:03 07:14 09:28 Temperature 98.6 F 98.7 F Pulse Rate 99 H 89 93 H Pulse Rate [ From Monitor] Respiratory 20 20 Rate Blood Pressure 148/80 172/82 126/67 O2 Sat by Pulse 100 98 Oximetry 05/31/18 09:48 Temperature Pulse Rate Pulse Rate [ 93 H From Monitor] Respiratory Rate Blood Pressure O2 Sat by Pulse 98 Oximetry - General Appearance General appearance: well-developed, appears stated age, other (not in distress) EENT: ATNC Neck: supple Respiratory: Present: Clear to Ascultation Cardiology: regular, S1S2, no murmurs Gastrointestinal: normoactive bowel sounds, no tenderness, no distended Integumentary: no rash Neurologic: other (opens eyes, non-verbal) Musculoskeletal: other (no edema) - Lab 05/30/18 08:29 05/31/18 11:09 Most recent lab results Calcium 7.9 mg/dL (8.4-10.2) L 05/31/18 11:09 Phosphorus 3.10 mg/dL (2.5-4.5) 05/26/18 05:14 Magnesium 1.50 mg/dL (1.7-2.3) L 05/31/18 05:10 Urine Creatinine 102.8 mg/dL (0.1-20.0) H 05/24/18 00:15 Urine Sodium 37 mmol/L 05/24/18 00:15 Medications & Allergies - Medications Allergies/Adverse Reactions: Allergies No Known Allergies Allergy (Verified 04/03/18 10:23) Home Medications: Home Medications Medication Instructions Recorded Confirmed Last Taken Type carBAMazepine [TEGretol] 400 mg PO Q8HR tablet 09/24/14 05/24/18 01/25/17 Rx Acetaminophen [Non-Aspirin Pain 500 mg PO Q4H PRN 01/26/17 05/24/18 01/26/17 History Relief] Carvedilol [Coreg] 6.25 mg PO BID tablet 01/29/17 05/24/[address] [Depakote Dr] 250 mg PO TID tablet 01/29/17 05/24/18 Unknown Rx Multivitamin Tab [Multiple Vitamin 1 each PO DAILY tablet 01/29/17 05/24/18 Unknown Rx TAB (Theragran)] Aspirin [Aspirin TAB] 325 mg PO QDAY #30 tablet 04/13/18 05/24/18 Unknown Rx AtorvaSTATin [Lipitor] 40 mg PO QHS #30 tablet 04/13/18 05/24/18 Unknown Rx Active Medications: Generic Name Dose Route Start Last Admin Trade Name Freq PRN Reason Stop Dose Admin Acetaminophen 650 mg 05/24/18 00:44 05/29/18 14:15 Tylenol PO 650 mg Q4H PRN Administration Fever >101 Aspirin 325 mg 05/24/18 10:00 05/31/18 09:28 Aspirin PO 325 mg QDAY GREGORIO Administration Carbamazepine 400 mg 05/24/18 22:00 05/31/18 13:02 Tegretol PO 400 mg Q8HR GREGORIO Administration Carvedilol 12.5 mg 05/27/18 22:00 05/31/18 09:28 Coreg PO 12.5 mg BID GREGORIO Administration Heparin Sodium (Porcine) 5,000 unit 05/24/18 12:45 05/31/18 09:31 Heparin SUB-Q 5,000 unit Q12HR GREGORIO Administration Hydralazine HCl 10 mg 05/28/18 11:22 05/28/18 12:06 Apresoline IV 10 mg Q4HR PRN Administration SBP>160 or DBP>110 Sodium Chloride 1,000 mls @ 50 mls/hr 05/27/18 12:00 05/31/18 06:49 Nacl 0.45% 1000 Ml IV 50 mls/hr DIRECT GREGORIO Administration Vancomycin HCl 1 gm in 250 mls @ 166.667 mls/hr 05/27/18 16:00 05/31/18 03:32 Vancomycin/Ns 1 Gm/250 Ml IV 06/22/18 17:29 166.667 mls/hr Q12H GREGORIO Administration Multivitamins 1 each 05/24/18 08:00 05/31/18 07:10 Theragran Tab PO 1 each 0800 GREGORIO Administration Ondansetron HCl 4 mg 05/24/18 00:48 Zofran IV Q8H PRN Nausea And Vomiting Potassium Chloride 40 meq 05/31/18 10:00 05/31/18 09:40 K-Dur PO 05/31/18 16:01 40 meq Q6H GREGORIO Administration Valproic Acid 250 mg 05/24/18 22:00 05/31/18 13:02 Depakene Liq FEEDTUBE 250 mg TID GREGORIO Administration
[2018-06-01] MEDS: NACL 0.45% 1000 ML 1,000 ML IV SCH (03:39)
[2018-06-01] MEDS: VANCOMYCIN/NS 1 GM/250 ML 1 GM/250 ML BAG IV SCH ×2 (03:42→16:13)
[2018-06-01 06:17] LABS: Hemoglobin 10.2 gm/dl (11.8-15.2); Mean Corpuscular HGB Conc 34 % (32-34); Mean Corpuscular Volume 91 fl (84-94); Platelet Count 196 K/mm3 (140-440); Red Blood Count 3.31 M/mm3 (3.65-5.03); Red Cell Distribution Width 15.5 % (13.2-15.2)
[2018-06-01 06:24] LABS: BUN/Creatinine Ratio 13; Blood Urea Nitrogen 10 mg/dL (9-20); Calcium 7.9 mg/dL (8.4-10.2); Hemolysis Index 12
--- NOTE | 2018-06-01 07:46 | Discharge Summary ---
Providers - Providers Date of Admission: 05/24/18 00:40 Date of discharge: 06/01/18 Attending physician: RACHEL JONES 05/24/18 06:00 Consult to Physician [CONS] Routine Comment: Consulting Provider: PRIYA LANDEROS Physician Instructions: Reason For Exam: ZAY 05/24/18 10:15 Consult to Physician [CONS] Routine Comment: Consulting Provider: VASU BLAIR Physician Instructions: Reason For Exam: Sepsis,indwelling solano 05/24/18 12:16 Consult to Physician [CONS] Routine Comment: Consulting Provider: SAMANTHA MCMILLAN Physician Instructions: Reason For Exam: Gross hematuria 05/26/18 15:00 Consult to Physician [CONS] Routine Comment: Consulting Provider: DUNCAN CALI Physician Instructions: Reason For Exam: Subacute right hip fracture, right knee pain 05/29/18 08:35 Consult to Case Management [CONS] Urgent Services Needed at Discharge: Home Health Services Notified:: no Additional Physician Instructions: [facility] ([facility] M [phone] O [phone] F [phone] OUTPATIENT PARENTERAL ANTIBIOTIC THERAPY ORDERS Diagnoses: MRSA bacteremia/UTI Antimicrobial administration: upon discharge, continue Vancomycin 1 gm in 250ml IV every 12 hours until 06-22-18. Target Trough 10-20 mcg/ml Remove PICC line after last dose unless otherwise instructed. Lines:PICC Lab monitoring: CBC, ALT, AST, BUN, Creatinine , vancomycin trough once a week preferly on Tuesday morning. Please fax results to [phone] and call [phone] for critical lab results. Essie Carrasquillo NP/Dr. Blair Date: 05/29/18 05/29/18 08:40 PICC Line Insertion [Consult to PICC Line RN] [CONS] Urgent Reason For Exam: out patient antibiotic therapy Type Line:: PICC Hospitalization Reason for admission: sepsis Condition: Stable Hospital course: The patient is a 72-year-old male with dementia, urinary retention, indwelling Solano catheter, diabetes, CVA who is a [facility] resident that was brought to the emergency room on 05/23/18 due to hypotension and associated hypothermia. Apparently, he initially had some hematuria and later no urine output. In the ER, the patient was noted to be septic with leukocytosis, lactic acidosis and hypotension. He was given a dose of Zosyn and vancomycin and admitted to the hospital. Infectious diseases was consulted. The patient had blood cultures that were completed which revealed MRSA on 05/23/18 but negative blood cultures on 05/25 and no growth and urine culture on 05/25. ID felt that etiology of the sepsis was likely secondary to urinary tract infection. Patient was seen by urology who recommended CT that was found to be negative. Urology also recommended to keep Solano at discharge and patient follow-up as an outpatient. The patient also saw nephrology in consultation for acute kidney injury. Patient was felt to have vasomotor acute kidney injury in the setting of hypotension. Renal function improved with IV fluid hydration. With regards to the MRSA bacteremia, ID felt that the source was likely urine. TTE shows no valvular vegetation. Plan for 4 weeks of IV Vancomycin. Other complications during hospital stay included complaints of right hip pain. Orthopedics saw the patient in consultation and x-rays revealed subacute right hip fracture. Therefore, ID recommended that if any new hardware needs to be placed, would wait at least 7 days from bacteremia clearance and continued IV vancomycin. If patient could wait longer, ideal recommendation would be after completion of IV abx Disposition: DC-30 STILL A PATIENT Exam - Constitutional Vitals: Temp Pulse Resp BP Pulse Ox 97.9 F 94 H 18 153/72 97 06/01/18 02:39 06/01/18 02:39 06/01/18 02:39 06/01/18 02:39 06/01/18 02:39 Plan Follow up with: PRIMARY CAREMD [Referring] - 3-5 Days
--- NOTE | 2018-06-01 08:20 | Progress Note ---
Assessment and Plan Imaging: Right knee Xray images reviewed - no acute abnormality noted. Cultures: 05/23/2018 blood cultures: MRSA 05/25/2018 blood cultures: no growth thus far 05/25/2018 Urine: no growth A/P: 72-year-old male with dementia, urinary retention, indwelling Summers catheter, diabetes, CVA, admitted with: 1) Sepsis: Resolved possibly secondary to urinary tract infection and hematuria. Seen by urology. Urine cultures negative, discontinued Cefepime. 2) MRSA Bacteremia, source unknown, possibly urine, although MRSA is not a common UTI pathogen but can happen in patients with indwelling Summers and there was apparently some hematuria prior to admission. TTE shows no valvular vegetation. Plan for 4 weeks of IV Vancomycin 2) Acute encephalopathy: On background of severe dementia now appears to be at baseline. 3) ZAY: renally dose abx. Improving. 4) UTI - U/A with pyuria, Urine culture shows no growth. 5) Acute Right Knee pain: X-ray reviewed, no abnormality noted. Recs: Continue IV Vancomycin with PK based dosing, target trough: 10-20 mcg/ml upon discharge, continue Vancomycin 1 gm in 250ml IV every 12 hours until 06-22-18 Order placed with Case management If any new hardware needs to be placed, would wait at least 7 days from bacteremia clearance and continued IV vancomycin. [facility] M: [phone] O:[phone] Subjective Date of service: 06/01/18 Principal diagnosis: t Interval history: Patient seen and examined. Asleep, eyes open to tactile stimulation. No family at bedside. Nurse notes, labs and reports reviewed. Objective - Exam Narrative Exam: Constitutional: Asleep. No acute distress observed Head, Ears, Nose: Normocephalic, atraumatic. External ears, nose normal Eyes: Conjunctivae/corneas clear. No icterus. No ptosis. Neck: Supple, no meningeal signs Oral: several missing teeth, no thrush Cardiovascular: S1, S2 normal. Respiratory: Good air entry, clear to auscultation bilaterally GI: bowel sounds + Summers catheter in place. Musculoskeletal: No pedal edema, no cyanosis. Skin: No rash or abscess Hem/Lymphatic: No palpable cervical or supraclavicular nodes. No lymphangitis Psych: no agitation Neurological: at baseline - Constitutional Vitals: Vital Signs Temp Pulse Resp BP Pulse Ox 97.9 F 80 20 146/75 100 06/01/18 07:26 06/01/18 07:26 06/01/18 07:26 06/01/18 07:26 06/01/18 07:26 Temperature -Last 24 Hours Temperature 97.9 F Temperature 97.9 F Temperature 99.7 F Temperature 98.6 F - Labs CBC & Chem 7: 06/01/18 05:14 06/01/18 05:14 Labs: Abnormal lab results 05/31/18 05/31/18 06/01/18 Range/Units 11:09 11:37 05:14 RBC 3.31 L (3.65-5.03) M/mm3 Hgb 10.2 L (11.8-15.2) gm/dl Hct 30.0 L (35.5-45.6) % RDW 15.5 H (13.2-15.2) % Chloride 107.3 H (98-107) mmol/L Glucose 108 H (75-100) mg/dL POC Glucose 118 H (70-105) Calcium 7.9 L (8.4-10.2) mg/dL 06/01/18 Range/Units 05:14 RBC (3.65-5.03) M/mm3 Hgb (11.8-15.2) gm/dl Hct (35.5-45.6) % RDW (13.2-15.2) % Chloride 107.9 H (98-107) mmol/L Glucose (75-100) mg/dL POC Glucose (70-105) Calcium 7.9 L (8.4-10.2) mg/dL
[2018-06-01 08:22] LABS: Basophils % (Manual) 0 % (0.0-1.8); Total Cells Counted 100
[2018-06-01 08:24] LABS: Anisocytosis 1+; Platelet Estimate Consistent w Auto; Poikilocytosis 1+
[2018-06-01] MEDS: DepaKENE Liq FEEDTUBE SCH ×3 (08:30→20:52)
--- NOTE | 2018-06-01 08:52 | Progress Note ---
Assessment and Plan Assessment and plan: MRSA Sepsis Continue Vancomycin total 4 weeks (06/22/18) ID Physician following Subacute right hip fracture ID reports that patient may undergo surgery but if any new hardware needs to be placed, would wait at least 7 days from bacteremia clearance and continued IV vancomycin. Last negative blood culture was 05/25/18. I discussed the case with orthopedics who will talk with the family. Ortho would like to do the surgery sooner than later. Bacteremia due to MRSA. Continue Vancomycin Hyperkalemia. Replete potassium. Check BMP UTI ZAY. Etiology secondary to vasomotor nephropathy Resolved. Toxic metabolic encephalopathy. neurochecks Dementia. Continue supportive care Gross hematuria, now resolved patient evaluated by Dr. Paz CT Abd : no hydronephrosis Urinary retention keep solano in Patient evaluated by Dr. Paz Full code History Interval history: The patient is a 72-year-old male with dementia, urinary retention, indwelling Solano catheter, diabetes, CVA who is a [facility] that was brought to the emergency room on 05/23/18 due to hypotension and associated hypothermia. Apparently, he initially had some hematuria and later no urine output. In the ER, the patient was noted to be septic with leukocytosis, lactic acidosis and hypotension. He was given a dose of Zosyn and vancomycin and admitted to the hospital. Infectious diseases was consulted. The patient had blood cultures that were completed which revealed MRSA on 05/23/18 but negative blood cultures on 05/25 and no growth and urine culture on 05/25. ID felt that etiology of the sepsis was likely secondary to urinary tract infection. Patient was seen by urology who recommended CT that was found to be negative. Urology also recommended to keep Solano at discharge and patient follow-up as an outpatient. The patient also saw nephrology in consultation for acute kidney injury. Patient was felt to have vasomotor acute kidney injury in the setting of hypotension. Renal function improved with IV fluid hydration. With regards to the MRSA bacteremia, ID felt that the source was likely urine. TTE shows no valvular vegetation. Plan for 4 weeks of IV Vancomycin. Other complications during hospital stay included complaints of right hip pain. Orthopedics saw the patient in consultation and x-rays revealed subacute right hip fracture. There fore, ID recommended that if any new hardware needs to be placed, would wait at least 7 days from bacteremia clearance and continued IV vancomycin. If patient could wait longer, ideal recommendation would be after completion of IV abx. Dr. Herrera will discuss with the the options for potential surgery tomorrow versus after completion of antibiotics. No new issues overnight. Hospitalist Physical - Constitutional Vitals: Temp Pulse Resp BP Pulse Ox 97.9 F 80 20 146/75 100 06/01/18 07:26 06/01/18 07:26 06/01/18 07:26 06/01/18 07:26 06/01/18 07:26 General appearance: Present: no acute distress - EENT Eyes: Present: PERRL, EOM intact ENT: hearing intact, clear oral mucosa, dentition normal - Neck Neck: Present: supple, normal ROM - Respiratory Respiratory effort: normal Respiratory: bilateral: CTA - Cardiovascular Rhythm: regular Heart Sounds: Present: S1 & S2. Absent: gallop, rub - Extremities Extremities: no ischemia, No edema, Full ROM - Abdominal General gastrointestinal: soft, non-tender, non-distended, normal bowel sounds - Integumentary Integumentary: Present: clear, warm, dry - Neurologic Neurologic: CNII-XII intact, moves all extremities Results - Labs CBC & Chem 7: 06/01/18 05:14 06/01/18 05:14 Labs: Laboratory Last Values WBC 6.4 K/mm3 (4.5-11.0) 06/01/18 05:14 RBC 3.31 M/mm3 (3.65-5.03) L 06/01/18 05:14 Hgb 10.2 gm/dl (11.8-15.2) L 06/01/18 05:14 Hct 30.0 % (35.5-45.6) L 06/01/18 05:14 MCV 91 fl (84-94) 06/01/18 05:14 MCH 31 pg (28-32) 06/01/18 05:14 MCHC 34 % (32-34) 06/01/18 05:14 RDW 15.5 % (13.2-15.2) H 06/01/18 05:14 Plt Count 196 K/mm3 (140-440) 06/01/18 05:14 Lymph % (Auto) 6.4 % (13.4-35.0) L 05/25/18 05:17 [place] % (Auto) [place] Firer/Fireman 06/01/18 05:14 Eos % (Auto) 0.0 % (0.0-4.3) 05/25/18 05:17 Baso % (Auto) 0.3 % (0.0-1.8) 05/25/18 05:17 Lymph # 0.8 K/mm3 (1.2-5.4) L 05/25/18 05:17 [place] # 1.4 K/mm3 (0.0-0.8) H 05/25/18 05:17 Eos # 0.0 K/mm3 (0.0-0.4) 05/25/18 05:17 Baso # 0.0 K/mm3 (0.0-0.1) 05/25/18 05:17 Add Manual Diff Complete 06/01/18 05:14 Total Counted 100 06/01/18 05:14 Seg Neutrophils % 81.7 % (40.0-70.0) H 05/25/18 05:17 Seg Neuts % (Manual) 78.0 % (40.0-70.0) H 06/01/18 05:14 Band Neutrophils % 0 % 06/01/18 05:14 Lymphocytes % (Manual) 10.0 % (13.4-35.0) L 06/01/18 05:14 Reactive Lymphs % (Man) 0 % 06/01/18 05:14 Monocytes % (Manual) 11.0 % (0.0-7.3) H 06/01/18 05:14 Eosinophils % (Manual) 1.0 % (0.0-4.3) 06/01/18 05:14 Basophils % (Manual) 0 % (0.0-1.8) 06/01/18 05:14 Metamyelocytes % 0 % 06/01/18 05:14 Myelocytes % 0 % 06/01/18 05:14 Promyelocytes % 0 % 06/01/18 05:14 Blast Cells % 0 % 06/01/18 05:14 Nucleated RBC % Not Reportable 06/01/18 05:14 Seg Neutrophils # 9.9 K/mm3 (1.8-7.7) H 05/25/18 05:17 Seg Neutrophils # Man 5.0 K/mm3 (1.8-7.7) 06/01/18 05:14 Band Neutrophils # 0.0 K/mm3 06/01/18 05:14 Lymphocytes # (Manual) 0.6 K/mm3 (1.2-5.4) L 06/01/18 05:14 Abs React Lymphs (Man) 0.0 K/mm3 06/01/18 05:14 Monocytes # (Manual) 0.7 K/mm3 (0.0-0.8) 06/01/18 05:14 Eosinophils # (Manual) 0.1 K/mm3 (0.0-0.4) 06/01/18 05:14 Basophils # (Manual) 0.0 K/mm3 (0.0-0.1) 06/01/18 05:14 Metamyelocytes # 0.0 K/mm3 06/01/18 05:14 Myelocytes # 0.0 K/mm3 06/01/18 05:14 Promyelocytes # 0.0 K/mm3 06/01/18 05:14 Blast Cells # 0.0 K/mm3 06/01/18 05:14 WBC Morphology Not Reportable 06/01/18 05:14 Hypersegmented Neuts Not Reportable 06/01/18 05:14 Hyposegmented Neuts Not Reportable 06/01/18 05:14 Hypogranular Neuts Not Reportable 06/01/18 05:14 Smudge Cells Not Reportable 06/01/18 05:14 Toxic Granulation Not Reportable 06/01/18 05:14 Toxic Vacuolation Not Reportable 06/01/18 05:14 Dohle Bodies Not Reportable 06/01/18 05:14 Pelger-Huet Anomaly Not Reportable 06/01/18 05:14 Christina Rods Not Reportable 06/01/18 05:14 Platelet Estimate Consistent w auto 06/01/18 05:14 Clumped Platelets Not Reportable 06/01/18 05:14 Plt Clumps, EDTA Not Reportable 06/01/18 05:14 Large Platelets Not Reportable 06/01/18 05:14 Giant Platelets Not Reportable 06/01/18 05:14 Platelet Satelliting Not Reportable 06/01/18 05:14 Plt Morphology Comment Not Reportable 06/01/18 05:14 RBC Morphology Not Reportable 06/01/18 05:14 Dimorphic RBCs Not Reportable 06/01/18 05:14 Polychromasia Not Reportable 06/01/18 05:14 Hypochromasia Not Reportable 06/01/18 05:14 Poikilocytosis 1+ 06/01/18 05:14 Anisocytosis 1+ 06/01/18 05:14 Microcytosis Not Reportable 06/01/18 05:14 Macrocytosis Not Reportable 06/01/18 05:14 Spherocytes Not Reportable 06/01/18 05:14 Pappenheimer Bodies Not Reportable 06/01/18 05:14 Sickle Cells Not Reportable 06/01/18 05:14 Target Cells Not Reportable 06/01/18 05:14 Tear Drop Cells Not Reportable 06/01/18 05:14 Ovalocytes Not Reportable 06/01/18 05:14 Helmet Cells Not Reportable 06/01/18 05:14 [place] Bodies Not Reportable 06/01/18 05:14 [place] Rings Not Reportable 06/01/18 05:14 Eduardo Cells Not Reportable 06/01/18 05:14 Bite Cells Not Reportable 06/01/18 05:14 Crenated Cell Not Reportable 06/01/18 05:14 Elliptocytes Not Reportable 06/01/18 05:14 Acanthocytes (Spur) Not Reportable 06/01/18 05:14 Rouleaux Not Reportable 06/01/18 05:14 Hemoglobin C Crystals Not Reportable 06/01/18 05:14 Schistocytes Not Reportable 06/01/18 05:14 Malaria parasites Not Reportable 06/01/18 05:14 Gustavo Bodies Not Reportable 06/01/18 05:14 Hem Pathologist Commnt No 06/01/18 05:14 Sodium 138 mmol/L (137-145) 06/01/18 05:14 Potassium 3.9 mmol/L (3.6-5.0) 06/01/18 05:14 Chloride 107.9 mmol/L (98-107) H 06/01/18 05:14 Carbon Dioxide 22 mmol/L (22-30) 06/01/18 05:14 Anion Gap 12 mmol/L 06/01/18 05:14 BUN 10 mg/dL (9-20) 06/01/18 05:14 Creatinine 0.8 mg/dL (0.8-1.5) 06/01/18 05:14 Estimated GFR > 60 ml/min 06/01/18 05:14 BUN/Creatinine Ratio 13 % 06/01/18 05:14 Glucose 100 mg/dL (75-100) 06/01/18 05:14 POC Glucose 112 (70-105) H 06/01/18 07:17 Lactic Acid 1.80 mmol/L (0.7-2.0) 05/24/18 06:14 Calcium 7.9 mg/dL (8.4-10.2) L 06/01/18 05:14 Phosphorus 3.10 mg/dL (2.5-4.5) 05/26/18 05:14 Magnesium 1.50 mg/dL (1.7-2.3) L 05/31/18 05:10 Total Bilirubin 0.60 mg/dL (0.1-1.2) 05/23/18 22:03 AST 95 units/L (5-40) H 05/23/18 22:03 ALT 27 units/L (7-56) 05/23/18 22:03 Alkaline Phosphatase 97 units/L (35-129) 05/23/18 22:03 Total Creatine Kinase 270 units/L (55-170) H 05/30/18 04:39 Total Protein 6.9 g/dL (6.3-8.2) 05/23/18 22:03 Albumin 3.1 g/dL (3.9-5) L 05/23/18 22:03 Albumin/Globulin Ratio 0.8 % 05/23/18 22:03 Urine Color [place] (Yellow) 05/24/18 00:15 Urine Turbidity Cloudy (Clear) 05/24/18 00:15 Urine pH 5.0 (5.0-7.0) 05/24/18 00:15 Ur Specific [place] 1.015 (1.003-1.030) 05/24/18 00:15 Urine Protein 100 mg/dl mg/dL (Negative) 05/24/18 00:15 Urine Glucose (UA) Neg mg/dL (Negative) 05/24/18 00:15 Urine Ketones Neg mg/dL (Negative) 05/24/18 00:15 Urine Blood Lg (Negative) 05/24/18 00:15 Urine Nitrite Neg (Negative) 05/24/18 00:15 Urine Bilirubin Neg (Negative) 05/24/18 00:15 Urine Urobilinogen < 2.0 mg/dL (<2.0) 05/24/18 00:15 Ur Leukocyte Esterase Lg (Negative) 05/24/18 00:15 Urine WBC (Auto) > 182.0 /HPF (0.0-6.0) H 05/24/18 00:15 Urine RBC (Auto) 81.0 /HPF (0.0-6.0) 05/24/18 00:15 U Epithel Cells (Auto) < 1.0 /HPF (0-13.0) 05/24/18 00:15 Urine WBC Clumps 3+ /HPF 05/24/18 00:15 Urine Creatinine 102.8 mg/dL (0.1-20.0) H 05/24/18 00:15 Urine Sodium 37 mmol/L 05/24/18 00:15 Vancomycin Trough 18.6 ug/mL (5.0-20.0) 05/29/18 03:07 Nutrition/Malnutrition Assess - Dietary Evaluation Nutrition/Malnutrition Findings: Nutrition Notes Start: 05/30/18 13:53 Freq: Status: Active Protocol: Document 05/31/18 10:22 SA (Rec: 05/31/18 11:16 SA [id number]) Co-Sign 05/31/18 10:22 LP Nutrition Notes Need for Assessment generated from: Low BMI Initial or Follow up Assessment Current Diagnosis Acute Kidney Injury Sepsis Hypertension Other Pertinent Diagnosis AMS, hyperkalemia, dementia, seizure disorder Current Diet Mechanical Soft Labs/Tests K: 3.2 Glu: 109 Pertinent Medications Reviewed Height 5 ft 11 in Weight 62.6 kg [place] Body Weight (kg) 78.18 BMI 19.2 Subjective/Other Information Patient screened for low BMI. Patient slightly confused at time of visit. Patient states appetite has been awful and not been able to eat much of his food. Patient reports eating 50% of trays. Observed breakfast tray in room with 50 % of food eaten. Patient denies N/V/D and chewing or swallowing difficulties. Patient states he enjoys food when he eats it. Patient states unsure of UBW. Patient showed interest in ONS. Percent of energy/protein needs met: 59%/67% Burn Absent Trauma Absent #1 Nutrition Diagnosis Inadequate oral intake Etiology decreased appetite and extreme pain As Evidenced by Signs and Symptoms eating <50% of meals, low BMI, and pain in right leg Is patient on ventilator? No Is Patient Ambulatory and/or Out of Bed Yes REE-([facility]-ambulatory/OOB) [ 1811.069 [id number]] Calculation Used for Recommendations [facility] Additional Notes PRO:75- 88g/day (1.2-1.4 g/kg) Fluid: 1 ml/kcal Nutrition Intervention Change Diet Order: Continue Current Add Supplement/Snack (indicate name/kcal Ensure Enlive [place] daily /protein ) Provides kCal: 350 Provides Protein (gm) 20 Goal #1 Meet at least 75% of kcal and protein needs via PO intake Goal #2 Weight Maintenance Anticipated Discharge Needs: Mechanical Soft Follow-Up By: 06/02/18 Additional Comments F/U: PO intake and ONS intake
--- NOTE | 2018-06-01 10:37 | Progress Note ---
Assessment and Plan 1. Acute kidney injury: Vasomotor ZAY in the setting of hypotension. Renal function is better. Monitor renal function. Avoid nephrotoxic agents. 2. FEN: Volume depletion, IV fluids. Metabolic acidosis, improved. Monitor lytes. 3. Sepsis / hypotension: Staph aureus bacteremia. Followed by ID. 4. Hematuria: Resolved and evaluated by Urologist. 5. Rhabdomyolysis: CK level has improved. 6. Acute encephalopathy. 7. HTN: Monitor BP. Subjective Date of service: 06/01/18 Principal diagnosis: t Interval history: Patient was seen and examined at the bedside. Objective - Vital Signs Vital signs: Vital Signs - 12hr 06/01/18 06/01/18 02:39 07:26 Temperature 97.9 F 97.9 F Pulse Rate 94 H 80 Respiratory 18 20 Rate Blood Pressure 153/72 146/75 O2 Sat by Pulse 97 100 Oximetry - General Appearance General appearance: well-developed, appears stated age, other (not in distress) EENT: ATNC Neck: supple Respiratory: Present: Clear to Ascultation Cardiology: regular, S1S2, no murmurs Gastrointestinal: normoactive bowel sounds, no tenderness, no distended Integumentary: no rash, warm and dry Neurologic: confused, disoriented, other (able to move extremities, tell his name) Musculoskeletal: other (no edema) - Lab 06/01/18 05:14 06/01/18 05:14 Most recent lab results Calcium 7.9 mg/dL (8.4-10.2) L 06/01/18 05:14 Phosphorus 3.10 mg/dL (2.5-4.5) 05/26/18 05:14 Magnesium 1.50 mg/dL (1.7-2.3) L 05/31/18 05:10 Urine Creatinine 102.8 mg/dL (0.1-20.0) H 05/24/18 00:15 Urine Sodium 37 mmol/L 05/24/18 00:15 Medications & Allergies - Medications Allergies/Adverse Reactions: Allergies No Known Allergies Allergy (Verified 04/03/18 10:23) Home Medications: Home Medications Medication Instructions Recorded Confirmed Last Taken Type carBAMazepine [TEGretol] 400 mg PO Q8HR tablet 09/24/14 05/24/18 01/25/17 Rx Acetaminophen [Non-Aspirin Pain 500 mg PO Q4H PRN 01/26/17 05/24/18 01/26/17 History Relief] Carvedilol [Coreg] 6.25 mg PO BID tablet 01/29/17 05/24/18 Unknown Rx Divalproex [Sergei Santizo] 250 mg PO TID tablet 01/29/17 05/24/18 Unknown Rx Multivitamin Tab [Multiple Vitamin 1 each PO DAILY tablet 01/29/17 05/24/18 U nknown Rx TAB (Theragran)] Aspirin [Aspirin TAB] 325 mg PO QDAY #30 tablet 04/13/18 05/24/18 Unknown Rx AtorvaSTATin [Lipitor] 40 mg PO QHS #30 tablet 04/13/18 05/24/18 Unknown Rx Active Medications: Generic Name Dose Route Start Last Admin Trade Name Freq PRN Reason Stop Dose Admin Acetaminophen 650 mg 05/24/18 00:44 05/29/18 14:15 Tylenol PO 650 mg Q4H PRN Administration Fever >101 Aspirin 325 mg 05/24/18 10:00 05/31/18 09:28 Aspirin PO 325 mg QDAY GREGORIO Administration Carbamazepine 400 mg 05/24/18 22:00 06/01/18 06:44 Tegretol PO 400 mg Q8HR GREGORIO Administration Carvedilol 12.5 mg 05/27/18 22:00 05/31/18 21:43 Coreg PO 12.5 mg BID GREGORIO Administration Heparin Sodium (Porcine) 5,000 unit 05/24/18 12:45 05/31/18 21:44 Heparin SUB-Q 5,000 unit Q12HR GREGORIO Administration Hydralazine HCl 10 mg 05/28/18 11:22 05/28/18 12:06 Apresoline IV 10 mg Q4HR PRN Administration SBP>160 or DBP>110 Sodium Chloride 1,000 mls @ 50 mls/hr 05/27/18 12:00 06/01/18 03:39 Nacl 0.45% 1000 Ml IV 50 mls/hr DIRECT GREGORIO Administration Vancomycin HCl 1 gm in 250 mls @ 166.667 mls/hr 05/27/18 16:00 06/01/18 03:42 Vancomycin/Ns 1 Gm/250 Ml IV 06/22/18 17:29 166.667 mls/hr Q12H GREGORIO Administration Multivitamins 1 each 05/24/18 08:00 05/31/18 07:10 Theragran Tab PO 1 each 0800 GREGORIO Administration Ondansetron HCl 4 mg 05/24/18 00:48 Zofran IV Q8H PRN Nausea And Vomiting Valproic Acid 250 mg 05/24/18 22:00 05/31/18 21:43 Depakene Liq FEEDTUBE 250 mg TID GREGORIO Administration
[2018-06-01] MEDS: COREG PO SCH ×2 (10:50→21:52)
[2018-06-01] MEDS: THERAGRAN Tab PO SCH (10:50)
[2018-06-01] MEDS: ASPIRIN PO SCH (10:51)
[2018-06-01] MEDS: HEPARIN SUB-Q SCH ×2 (10:51→21:53)
[2018-06-02] MEDS: VANCOMYCIN/NS 1 GM/250 ML 1 GM/250 ML BAG IV SCH (04:34)
[2018-06-02] MEDS: NACL 0.45% 1000 ML 1,000 ML IV SCH (04:35)
[2018-06-02] MEDS: THERAGRAN Tab PO SCH (08:35)
[2018-06-02] MEDS: DepaKENE Liq FEEDTUBE SCH ×2 (08:36→13:34)
--- NOTE | 2018-06-02 08:40 | Progress Note ---
Assessment and Plan Imaging: Right knee Xray images reviewed - no acute abnormality noted. Cultures: 05/23/2018 blood cultures: MRSA 05/25/2018 blood cultures: no growth thus far 05/25/2018 Urine: no growth A/P: 72-year-old male with dementia, urinary retention, indwelling Summers catheter, diabetes, CVA, admitted with: 1) Sepsis: Resolved possibly secondary to urinary tract infection and hematuria. Seen by urology. Urine cultures negative, discontinued Cefepime. 2) MRSA Bacteremia, source unknown, possibly urine, although MRSA is not a common UTI pathogen but can happen in patients with indwelling Summers and there was apparently some hematuria prior to admission. TTE shows no valvular vegetation. Plan for 4 weeks of IV Vancomycin 2) Acute encephalopathy: On background of severe dementia now appears to be at baseline. 3) ZAY: renally dose abx. Improving. 4) UTI - U/A with pyuria, Urine culture shows no growth. 5) Acute Right Knee pain: X-ray reviewed, no abnormality noted. Recs: Continue IV Vancomycin with PK based dosing, target trough: 10-20 mcg/ml upon discharge, continue Vancomycin 1 gm in 250ml IV every 12 hours until 06-22-18 Order placed with Case management If any new hardware needs to be placed, would wait at least 7 days from bacteremia clearance and continued IV vancomycin. [facility] M: [id number] O:[phone] Subjective Date of service: 06/02/18 Principal diagnosis: t Interval history: Patient seen and examined. Asleep, eyes open to tactile stimulation. No family at bedside. Nurse notes, labs and reports reviewed. Objective - Exam Narrative Exam: Constitutional: Asleep. No acute distress observed Head, Ears, Nose: Normocephalic, atraumatic. External ears, nose normal Eyes: Conjunctivae/corneas clear. No icterus. No ptosis. Neck: Supple, no meningeal signs Oral: several missing teeth, no thrush Cardiovascular: S1, S2 normal. Respiratory: Good air entry, clear to auscultation bilaterally GI: bowel sounds + Summers catheter in place. Musculoskeletal: No pedal edema, no cyanosis. Skin: No rash or abscess Hem/Lymphatic: No palpable cervical or supraclavicular nodes. No lymphangitis Psych: no agitation Neurological: at baseline - Constitutional Vitals: Vital Signs Temp Pulse Resp BP Pulse Ox 97.9 F 78 18 131/76 98 06/02/18 07:24 06/02/18 07:24 06/02/18 07:24 06/02/18 07:24 06/02/18 07:24 Temperature -Last 24 Hours Temperature 97.9 F Temperature 98.6 F Temperature 98.6 F Temperature 98.0 F - Labs CBC & Chem 7: 06/01/18 05:14 06/01/18 05:14 Labs: Abnormal lab results 06/01/18 06/01/18 06/01/18 Range/Units 11:44 16:24 21:44 POC Glucose 117 H 115 H 123 H (70-105) 06/02/18 Range/Units 07:27 POC Glucose 111 H (70-105)
[2018-06-02] MEDS: COREG PO SCH (09:21)
[2018-06-02] MEDS: ASPIRIN PO SCH (09:21)
[2018-06-02] MEDS: HEPARIN SUB-Q SCH (09:22)
--- NOTE | 2018-06-02 10:33 | Discharge Summary ---
Providers - Providers Date of Admission: 05/24/18 00:40 Date of discharge: 06/02/18 Attending physician: RACHEL JONES 05/24/18 06:00 Consult to Physician [CONS] Routine Comment: Consulting Provider: PRIYA LANDEROS Physician Instructions: Reason For Exam: ZAY 05/24/18 10:15 Consult to Physician [CONS] Routine Comment: Consulting Provider: VASU BLAIR Physician Instructions: Reason For Exam: Sepsis,indwelling solano 05/24/18 12:16 Consult to Physician [CONS] Routine Comment: Consulting Provider: SAMANTHA MCMILLAN Physician Instructions: Reason For Exam: Gross hematuria 05/26/18 15:00 Consult to Physician [CONS] Routine Comment: Consulting Provider: DUNCAN HERRERA Physician Instructions: Reason For Exam: Subacute right hip fracture, right knee pain 05/29/18 08:35 Consult to Case Management [CONS] Urgent Services Needed at Discharge: Home Health Services Notified:: no Additional Physician Instructions: [facility] M [phone] O [phone] F [phone] OUTPATIENT PARENTERAL ANTIBIOTIC THERAPY ORDERS Diagnoses: MRSA bacteremia/UTI Antimicrobial administration: upon discharge, continue Vancomycin 1 gm in 250ml IV every 12 hours until 06-22-18. Target Trough 10-20 mcg/ml Remove PICC line after last dose unless otherwise instructed. Lines:PICC Lab monitoring: CBC, ALT, AST, BUN, Creatinine , vancomycin trough once a week preferly on Tuesday morning. Please fax results to [phone] and call [phone] for critical lab results. Essie Carrasquillo NP/Dr. Blair Date: 05/29/18 05/29/18 08:40 PICC Line Insertion [Consult to PICC Line RN] [CONS] Urgent Reason For Exam: out patient antibiotic therapy Type Line:: PICC Hospitalization Reason for admission: sepsis Condition: Stable Hospital course: The patient is a 72-year-old male with dementia, urinary retention, indwelling Solano catheter, diabetes, CVA who is a prison resident that was brought to the emergency room on 05/23/18 due to hypotension and associated hypothermia. Apparently, he initially had some hematuria and later no urine output. In the ER, the patient was noted to be septic with leukocytosis, lactic acidosis and hypotension. He was given a dose of Zosyn and vancomycin and admitted to the hospital. Infectious diseases was consulted. The patient had blood cultures that were completed which revealed MRSA on 05/23/18 but negative blood cultures on 05/25 and no growth and urine culture on 05/25. ID felt that etiology of the sepsis was likely secondary to urinary tract infection. Patient was seen by urology who recommended CT that was found to be negative. Urology also recommended to keep Solano at discharge and patient follow-up as an outpatient. The patient also saw nephrology in consultation for acute kidney injury. Patient was felt to have vasomotor acute kidney injury in the setting of hypotension. Renal function improved with IV fluid hydration. With regards to the MRSA bacteremia, ID felt that the source was likely urine. TTE shows no valvular vegetation. Plan for 4 weeks of IV Vancomycin. Other complications during hospital stay included complaints of right hip pain. Orthopedics saw the patient in consultation and x-rays revealed subacute right hip fracture. Therefore, ID recommended that surgery be done after completion of IV abx. Dr. Herrera will discuss with the the options for potential surgery at a later date Disposition: [id number] [facility] Time spent for discharge: 35 - Discharge Diagnoses (1) Hip fracture, right Status: Acute (2) MRSA bacteremia Status: Acute (3) Hypotension Status: Acute (4) Sepsis Status: Acute (5) Dementia Status: Acute (6) Urinary retention Status: Acute (7) Seizure disorder Status: Chronic Core Measure Documentation - Palliative Care Palliative Care/ Comfort Measures: Not Applicable - Core Measures Any of the following diagnoses?: none Exam - Constitutional Vitals: Temp Pulse Resp BP Pulse Ox 97.9 F 78 18 131/76 98 06/02/18 07:24 06/02/18 09:21 06/02/18 07:24 06/02/18 09:21 06/02/18 07:24 General appearance: Present: no acute distress, well-nourished - EENT Eyes: Present: PERRL ENT: hearing intact, clear oral mucosa - Neck Neck: Present: supple, normal ROM - Respiratory Respiratory effort: normal Respiratory: bilateral: CTA - Cardiovascular Heart Sounds: Present: S1 & S2. Absent: rub, click - Extremities Extremities: pulses symmetrical, No edema Peripheral Pulses: within normal limits - Abdominal General gastrointestinal: Present: soft, non-tender, non-distended, normal bowel sounds Male genitourinary: Present: normal - Integumentary Integumentary: Present: clear, warm, dry - Musculoskeletal Musculoskeletal: gait normal, strength equal bilaterally - Psychiatric Psychiatric: appropriate mood/affect, intact judgment & insight - Neurologic Neurologic: CNII-XII intact, moves all extremities Plan Activity: fall precautions Weight Bearing Status: Non-Weight Bearing Diet: other (per speech recommendations) Additional Instructions: Hip surgery with Dr. Herrera after abx are completed. F/U with Dr. Blair of ID Follow up with: PRIMARY CAREMD [Referring] - 3-5 Days DUNCAN HERRERA MD [Staff Physician] - 7 Days VASU BLAIR MD [Staff Physician] - 7 Days
[2018-06-02] MEDS: TYLENOL PO PRN (13:38)
[2018-06-02 13:45] VITALS: BP 158/86
== END 2018-06-02 14:03 | DRG 871 ==
LOC: ED 21:45 → 4A 05-24 00:40 → 2B-ACE 05-28 16:44
PROVIDERS: ADMIT Internal Medicine; ATTEND Hospitalist
PROC: 02HV33Z Insertion of Infusion Device into Superior Vena Cava, Percutaneous Approach (ICD-10-PCS; principal; 2018-05-29)
DX: A41.02 Sepsis due to Methicillin resistant Staphylococcus aureus (principal); S72.091A Other fracture of head and neck of right femur, initial encounter for closed fracture; N17.0 Acute kidney failure with tubular necrosis; G92 Toxic encephalopathy; N39.0 Urinary tract infection, site not specified; M62.82 Rhabdomyolysis; E87.2 Acidosis; I95.9 Hypotension, unspecified; E86.9 Volume depletion, unspecified; E87.6 Hypokalemia; R31.0 Gross hematuria; X58.XXXA Exposure to other specified factors, initial encounter; G40.909 Epilepsy, unspecified, not intractable, without status epilepticus; F03.90 Unspecified dementia, unspecified severity, without behavioral disturbance, psychotic disturbance, mood disturbance, and anxiety; E11.9 Type 2 diabetes mellitus without complications; I10 Essential (primary) hypertension; Z86.73 Personal history of transient ischemic attack (TIA), and cerebral infarction without residual deficits; Z79.899 Other long term (current) drug therapy; Y93.89 Activity, other specified; Y92.89 Other specified places as the place of occurrence of the external cause; Y99.8 Other external cause status; Z79.84 Long term (current) use of oral hypoglycemic drugs
CPT/HCPCS: 36415; 70450; 71045; 74176; 80048; 80053; 80202; 81001; 82140; 82550; 82570; 82962; 83735; 84100; 84132; 84300; 85007; 85025; 85027; 87040; 87076; 87086; 87186; 93308; 93321; 93325; 96365; G0378; A9270-GY; J0360; J0692; J1644; J1956; J2543; J3370; J3475; J3480; J7030; J7050